=== PATIENT | female | born 1935 | race Caucasian/White ===

== ENCOUNTER 2021-12-13 14:33 | Inpatient (IN) ==
--- NOTE | 2021-12-13 14:51 | Emergency Department Note ---
Impression & Plan 2019 novel coronavirus-infected pneumonia (NCIP), Respiratory failure, Acute sore throat, LLL pneumonia ED Provider Note Provider: Perez Marquis MD DATE OF SERVICE: 12/13/2021 CHIEF COMPLAINT: Sore throat, weakness HISTORY OF PRESENT ILLNESS: Patient is a 86-year-old female reported history of hypertension, chronic dyspnea on exertion, and chronic left hip and low back pain. Presenting here today via ambulance from her apartment with reports for the past week developing some fevers and chills with a bit of a sore throat and cough. Worsening myalgias and weakness today. Minimally productive to no productivity to the cough. Denies nausea vomiting or abdominal pain. Denies chest pain. Reports lipid constipation. Denies any falls. Patient relays that she was around the folks who were sick about a week ago and her symptoms started. She is not vaccinated for flu or COVID. EMS reports the patient was found to be hypoxic in the right 70s for them on room air. Patient with minimal complaints of shortness of breath. Predominately complains of sore throat. REVIEW OF SYSTEMS: A total of 10 review of systems was obtained and negative except as stated above in the HPI. PAST MEDICAL HISTORY: As noted above MEDICATIONS: Reviewed home medications SOCIAL HISTORY: Former smoker, lives by herself in apartment PHYSICAL EXAM: GENERAL: alert and oriented in no acute distress on stretcher fatigued in appearance, very slight/thin in frame Head: normocephalic and atraumatic EYES: No injection, discharge or icterus. NECK: Trachea midline. Supple. ENT: Mucous membranes pink and moist. Pharynx without significant swelling and minimal erythema. LUNGS: Airway patent. No retractions. Breath sounds clear anteriorly without significant wheeze HEART: Regular rate and rhythm. No chest wall tenderness ABDOMEN: Soft and non-tender, without guarding or rebound. SKIN: Acyanotic, warm, dry, without rashes EXTREMITIES: Without swelling, tenderness or deformity NEUROLOGICAL: No focal deficits. No aphasia. No facial droop or slurred speech. Normal strength and tone in the extremities. Sensation to gross touch normal. Ambulatory. EK bpm normal sinus rhythm. No PVC or PAC. No acute ST segment elevation or depression other significant artifact in the inferior leads. QTc 416. CONTINUOUS CARDIAC MONITORING: was ordered and showed a heart rate of 80s-100s bpm in normal sinus rhythm/sinus tachycardia Patient's laboratory studies and imaging reviewed. Differential includes Infection, dehydration, metabolic abnormality, hypo/hyperglycemia, electrolyte disturbance, anemia, hypoxia, cardiac sources, intracerebral event, toxicologic, neurologic, as well as other pathologies. IMPRESSION/MEDICAL DECISION MAKING: Patient significant hypoxic here on room air at rest. Unvaccinated. High suspicion for viral syndrome such as COVID. Test sent and returns positive. Given her hypoxia given a dose of dexamethasone. Basic labs, lactate, EKG, chest x-ray, and blood cultures were completed. Leukocytosis of 14 with an elevated procalcitonin. Question bacterial infection. Mild CRP elevation. No troponin elevation. No signs of renal dysfunction or electrolyte abnormality. Chest x- ray concerning for left lower lobe pneumonia. Given her hypoxia and these fi ndings treated broadly with ceftriaxone and doxycycline. Discussed with the patient she requires admission given her hypoxia. DIAGNOSIS: Hypoxic respiratory failure, left lower lobe pneumonia, COVID-19 pneumonia DISPOSITION: Hospitalist will evaluate Patient was agreeable with this plan. Past Med/Surg History Medical History Anxiety Chronic back pain CKD (chronic kidney disease), stage III HTN (hypertension) Surgical History History of hip replacement History of tonsillectomy Family History Other Heart disease Hypertension Social History Smoking Status: Former smoker packs per day: 0.5; Years Smoked: 10; Smoking End Date: 1985; Hx Alcohol Use: No Hx Substance Use: No Feels Safe at Home: Yes Allergies Allergies Allergy/AdvReac Type Severity Reaction Status Date / Time hydroxyzine [From Atarax] AdvReac HEART RACES Verified 12/13/21 15:45 Home Meds Home Medications Medication Instructions Recorded Confirmed amlodipine 10 mg tablet 10 mg PO DAILY 12/13/21 12/13/21 aspirin 81 mg chewable tablet 81 mg PO DAILY 12/13/21 12/13/21 diazepam 5 mg tablet 5 mg PO BID PRN 12/13/21 12/13/21 diclofenac sodium 1 % topical gel 0 g TOPICAL TID PRN 12/13/21 12/13/21 docusate sodium 100 mg capsule 100 mg PO BID 12/13/21 12/13/21 fluticasone propionate 110 2 puff INHALATION BID 12/13/21 12/13/21 mcg/actuation HFA aerosol inhaler (Flovent HFA) hydrocodone 5 mg-acetaminophen 325 1 tab PO Q8H PRN 12/13/21 12/13/21 mg tablet lisinopril 5 mg tablet 10 mg PO DAILY 12/13/21 12/13/21 sennosides 8.6 mg tablet (senna) 8.6 mg PO BID 12/13/21 12/13/21 Results & Data (ED) Vital Signs Vital Signs - 24 hr 12/13/21 14:44 12/13/21 14:48 12/13/21 14:49 Temperature 36.6 C Temperature Source Oral Pulse Rate 102 H 94 H Pulse Rate from SpO2 Sensor 95 H Pulse Rhythm Regular Pulse Strength Normal Respiratory Rate 20 25 H Respiratory Effort / Characteristics Non-Labored Spontaneous Respiratory Depth Shallow Respiratory Pattern Regular Blood Pressure 188/90 H Blood Pressure Mean 122 Blood Pressure Position Lying Pulse Oximetry 75 L 93 75 L Oxygen Delivery Method Room Air Nasal Cannula Room Air Oxygen Flow Rate 4 0 Sepsis Recent Fever Within 48 Hours No Sepsis New/Unexplained Change in Mental Status No Sepsis Action Taken by Nursing Physician Notified Oxygen Flow Rate - Titration 4 Pulse Oximetry Post Tiitration 94 12/13/21 14:50 12/13/21 15:00 12/13/21 15:05 Temperature Temperature Source Pulse Rate 94 H 94 H 88 Pulse Rate from SpO2 Sensor 94 H 94 H Pulse Rhythm Pulse Strength Respiratory Rate 24 24 20 Respiratory Effort / Characteristics Respiratory Depth Respiratory Pattern Blood Pressure Blood Pressure Mean Blood Pressure Position Pulse Oximetry 94 95 95 Oxygen Delivery Method Nasal Cannula Nasal Cannula Oxygen Flow Rate 4 4 4 Sepsis Recent Fever Within 48 Hours Sepsis New/Unexplained Change in Mental Status Sepsis Action Taken by Nursing Oxygen Flow Rate - Titration Pulse Oximetry Post Tiitration 12/13/21 15:10 12/13/21 15:20 12/13/21 15:30 Temperature Temperature Source Pulse Rate 103 H 84 82 Pulse Rate from SpO2 Sensor 95 H 84 79 Pulse Rhythm Pulse Strength Respiratory Rate 24 22 24 Respiratory Effort / Characteristics Respiratory Depth Respiratory Pattern Blood Pressure Blood Pressure Mean Blood Pressure Position Pulse Oximetry 95 96 96 Oxygen Delivery Method Nasal Cannula Nasal Cannula Nasal Cannula Oxygen Flow Rate 4 4 4 Sepsis Recent Fever Within 48 Hours Sepsis New/Unexplained Change in Mental Status Sepsis Action Taken by Nursing Oxygen Flow Rate - Titration Pulse Oximetry Post Tiitration 12/13/21 15:39 12/13/21 15:40 12/13/21 15:50 Temperature Temperature Source Pulse Rate 82 86 Pulse Rate from SpO2 Sensor 86 87 Pulse Rhythm Pulse Strength Respiratory Rate 24 26 H Respiratory Effort / Characteristics Respiratory Depth Respiratory Pattern Blood Pressure Blood Pressure Mean Blood Pressure Position Pulse Oximetry 96 97 94 Oxygen Delivery Method Nasal Cannula Nasal Cannula Nasal Cannula Oxygen Flow Rate 4 3 3 Sepsis Recent Fever Within 48 Hours Sepsis New/Unexplained Change in Mental Status Sepsis Action Taken by Nursing Oxygen Flow Rate - Titration 3 Pulse Oximetry Post Tiitration 96 12/13/21 16:00 12/13/21 16:10 Temperature Temperature Source Pulse Rate 83 85 Pulse Rate from SpO2 Sensor 83 90 Pulse Rhythm Pulse Strength Respiratory Rate 22 19 Respiratory Effort / Characteristics Respiratory Depth Respiratory Pattern Blood Pressure Blood Pressure Mean Blood Pressure Position Pulse Oximetry 95 93 Oxygen Delivery Method Nasal Cannula Nasal Cannula Oxygen Flow Rate 3 3 Sepsis Recent Fever Within 48 Hours Sepsis New/Unexplained Change in Mental Status Sepsis Action Taken by Nursing Oxygen Flow Rate - Titration Pulse Oximetry Post Tiitration Laboratory Data Result diagrams: 12/13/21 14:55 12/13/21 14:55 Lab Results 12/13/21 12/13/21 12/13/21 Range/Units 14:55 14:55 14:55 WBC 14.06 H (4.8-10.8) K/uL RBC 4.49 (4.2-5.4) M/uL Hgb 14.0 (12.0-16.0) g/dL Hct 43.0 (37-47) % MCV 95.8 (80-100) fL MCH 31.2 (25-34) pg MCHC 32.6 (32-36) g/dL RDW Std Deviation 45.5 (36.4-46.3) fL RDW Coeff of Krista 13.0 (11.5-14.5) % Plt Count 175 (130-400) K/uL MPV 11.3 H (7.4-10.4) fL Immature Gran % (Auto) 0.2 % Neut % (Auto) 89.8 % Lymph % (Auto) 3.9 % Clinch % (Auto) 6.0 % Eos % (Auto) 0.0 % Baso % (Auto) 0.1 % Neut # (Auto) 12.62 H (1.4-6.5) K/uL Lymph # (Auto) 0.55 L (1.2-3.4) K/uL Clinch # (Auto) 0.85 H (0.11-0.59) K/uL Eos # (Auto) 0.00 (0-0.5) K/uL Baso # (Auto) 0.01 (0-0.2) K/uL Immature Gran # (Auto) 0.03 H (0.00-0.02) K/uL PT 9.8 (9.0-12.0) Seconds INR 1.0 (0.9-1.1) Sodium 140 (136-145) mmol/L Potassium 4.2 (3.5-5.1) mmol/L Chloride 101 (98-107) mmol/L Carbon Dioxide 31 (21-32) mmol/L Anion Gap 8 (3-11) BUN 21 (6-23) mg/dl Creatinine 0.89 (0.6-1.2) mg/dl Est Cr Clr Drug Dosing 24.4 ml/min Est GFR ( Amer) 68.0 ml/min Est GFR (Non-Af Amer) 58.7 ml/min BUN/Creatinine Ratio 23.6 H (10-20) Glucose 131 H (70-99(Fasting)) mg/dl Lactate (0.4-2.0) mmol/L Calcium 9.8 (8.5-10.1) mg/dl Magnesium 2.0 (1.7-2.4) mg/dl Total Bilirubin 0.4 (0.2-1.0) mg/dl AST 18 (13-39) U/L ALT 11 (7-52) U/L Alkaline Phosphatase 71 (34-104) U/L Troponin I < 0.03 (0-0.04) ng/ml C-Reactive Protein 1.66 H (0-0.5) mg/dl Total Protein 6.8 (6.0-8.3) gm/dl Albumin 4.0 (3.4-5.0) gm/dl Globulin 2.8 (2.5-4.0) gm/dl Albumin/Globulin Ratio 1.4 (0.9-2) Procalcitonin (0-0.5) ng/ml TSH (0.300-4.500) uIu/ml SARS-CoV-2, RNA, NAAT (NEGATIVE) 12/13/21 12/13/21 12/13/21 Range/Units 14:55 14:55 14:55 WBC (4.8-10.8) K/uL RBC (4.2-5.4) M/uL Hgb (12.0-16.0) g/dL Hct (37-47) % MCV (80-100) fL MCH (25-34) pg MCHC (32-36) g/dL RDW Std Deviation (36.4-46.3) fL RDW Coeff of Krista (11.5-14.5) % Plt Count (130-400) K/uL MPV (7.4-10.4) fL Immature Gran % (Auto) % Neut % (Auto) % Lymph % (Auto) % Clinch % (Auto) % Eos % (Auto) % Baso % (Auto) % Neut # (Auto) (1.4-6.5) K/uL Lymph # (Auto) (1.2-3.4) K/uL Clinch # (Auto) (0.11-0.59) K/uL Eos # (Auto) (0-0.5) K/uL Baso # (Auto) (0-0.2) K/uL Immature Gran # (Auto) (0.00-0.02) K/uL PT (9.0-12.0) Seconds INR (0.9-1.1) Sodium (136-145) mmol/L Potassium (3.5-5.1) mmol/L Chloride (98-107) mmol/L Carbon Dioxide (21-32) mmol/L Anion Gap (3-11) BUN (6-23) mg/dl Creatinine (0.6-1.2) mg/dl Est Cr Clr Drug Dosing ml/min Est GFR ( Amer) ml/min Est GFR (Non-Af Amer) ml/min BUN/Creatinine Ratio (10-20) Glucose (70-99(Fasting)) mg/dl Lactate 1.1 (0.4-2.0) mmol/L Calcium (8.5-10.1) mg/dl Magnesium (1.7-2.4) mg/dl Total Bilirubin (0.2-1.0) mg/dl AST (13-39) U/L ALT (7-52) U/L Alkaline Phosphatase (34-104) U/L Troponin I (0-0.04) ng/ml C-Reactive Protein (0-0.5) mg/dl Total Protein (6.0-8.3) gm/dl Albumin (3.4-5.0) gm/dl Globulin (2.5-4.0) gm/dl Albumin/Globulin Ratio (0.9-2) Procalcitonin 1.72 H (0-0.5) ng/ml TSH 1.255 (0.300-4.500) uIu/ml SARS-CoV-2, RNA, NAAT (NEGATIVE) 12/13/21 Range/Units 15:40 WBC (4.8-10.8) K/uL RBC (4.2-5.4) M/uL Hgb (12.0-16.0) g/dL Hct (37-47) % MCV (80-100) fL MCH (25-34) pg MCHC (32-36) g/dL RDW Std Deviation (36.4-46.3) fL RDW Coeff of Krista (11.5-14.5) % Plt Count (130-400) K/uL MPV (7.4-10.4) fL Immature Gran % (Auto) % Neut % (Auto) % Lymph % (Auto) % Clinch % (Auto) % Eos % (Auto) % Baso % (Auto) % Neut # (Auto) (1.4-6.5) K/uL Lymph # (Auto) (1.2-3.4) K/uL Clinch # (Auto) (0.11-0.59) K/uL Eos # (Auto) (0-0.5) K/uL Baso # (Auto) (0-0.2) K/uL Immature Gran # (Auto) (0.00-0.02) K/uL PT (9.0-12.0) Seconds INR (0.9-1.1) Sodium (136-145) mmol/L Potassium (3.5-5.1) mmol/L Chloride (98-107) mmol/L Carbon Dioxide (21-32) mmol/L Anion Gap (3-11) BUN (6-23) mg/dl Creatinine (0.6-1.2) mg/dl Est Cr Clr Drug Dosing ml/min Est GFR ( Amer) ml/min Est GFR (Non-Af Amer) ml/min BUN/Creatinine Ratio (10-20) Glucose (70-99(Fasting)) mg/dl Lactate (0.4-2.0) mmol/L Calcium (8.5-10.1) mg/dl Magnesium (1.7-2.4) mg/dl Total Bilirubin (0.2-1.0) mg/dl AST (13-39) U/L ALT (7-52) U/L Alkaline Phosphatase (34-104) U/L Troponin I (0-0.04) ng/ml C-Reactive Protein (0-0.5) mg/dl Total Protein (6.0-8.3) gm/dl Albumin (3.4-5.0) gm/dl Globulin (2.5-4.0) gm/dl Albumin/Globulin Ratio (0.9-2) Procalcitonin (0-0.5) ng/ml TSH (0.300-4.500) uIu/ml SARS-CoV-2, RNA, NAAT POSITIVE A* (NEGATIVE) Administered Medications Discontinued Medications Acetaminophen (Acetaminophen 325 Mg Tab) 650 mg PO NOW STA Stop: 12/13/21 16:09 Last Admin: 12/13/21 16:29 Dose: 650 mg Documented by: [id number] Dexamethasone Sodium Phosphate (DexamethasonePf 10 Mg/Ml Vial) 6 mg IV NOW ONE Stop: 12/13/21 15:54 Last Admin: 12/13/21 16:07 Dose: 6 mg Documented by: [id number] Doxycycline Hyclate (Doxycycline Hyclate 100 Mg Cap) 100 mg PO NOW STA Stop: 12/13/21 15:52 Last Admin: 12/13/21 16:06 Dose: 100 mg Documented by: [id number] Sodium Chloride (Nss 1000ml) 500 mls @ 999 mls/hr IV .Q31M ONE Stop: 12/13/21 16:21 Last Infusion: 12/13/21 16:39 Dose: 0 mls/hr Documented by: [id number] Admin: 12/13/21 16:08 Dose: 999 mls/hr Documented by: [id number] Ceftriaxone Sodium (Rocephin) 1,000 mg in 50 mls @ 100 mls/hr IV NOW STA Stop: 12/13/21 16:20 Last Infusion: 12/13/21 16:53 Dose: 0 mls/hr Documented by: [id number] Admin: 12/13/21 16:10 Dose: 100 mls/hr Documented by: [id number] Menthol (Cough Drop (Sugar Free) Starla 24 Starla/1 Box) 1 starla BUCCAL NOW STA Stop: 12/13/21 16:09 Last Admin: 12/13/21 16:28 Dose: 1 starla Documented by: [id number] Imaging Data Radiologist's Impression: Chest X-Ray 12/13/21 14:47 XR chest 1V portable CLINICAL HISTORY: weakness TECHNIQUE: Single frontal radiograph of the chest was obtained. Comparison: None available at the time of this dictation. FINDINGS: No lines and tubes are seen. The cardiomediastinal silhouette is normal. Focal airspace opacities in the left lower lung. No evidence of pleural effusion or pneumothorax. Scoliosis is noted. IMPRESSION: Focal airspace opacity in the left lower lung may represent atelectasis, pneumonia, and/or aspiration. ACT 112: Negative or not required by law. Electronically signed by: Benedicto Reynolds M.D. 12/13/2021 3:15 PM Discharge Plan Visit Data Chief Complaint: Sore Throat Stated Complaint: ILLNESS, SORE THROAT ED Provider: Perez Marquis Discharge Problem: 2019 novel coronavirus-infected pneumonia (NCIP), Respiratory failure, Acute sore throat, LLL pneumonia Patient Disposition: Being Evaluated by Hospitalist
[2021-12-13 15:07] LABS: Basophils # (auto) 0.01 K/uL (0-0.2); Basophils % (auto) 0.1 %; Immature Granulocytes # (auto) 0.03 K/uL (0.00-0.02); Immature Granulocytes % (auto) 0.2 %; Lymphocytes # (auto) 0.55 K/uL (1.2-3.4); Lymphocytes % (auto) 3.9 %; Mean Corpuscular Hemoglobin 31.2 pg (25-34); Mean Corpuscular Hgb Conc 32.6 g/dL (32-36); Mean Corpuscular Volume 95.8 fL (80-100); Mean Platelet Volume 11.3 fL (7.4-10.4); Monocytes # (auto) 0.85 K/uL (0.11-0.59); Neutrophils # (auto) 12.62 K/uL (1.4-6.5); Neutrophils % (auto) 89.8 %; Platelet Count 175 K/uL (130-400); RDW Standard Deviation 45.5 fL (36.4-46.3); Red Blood Count 4.49 M/uL (4.2-5.4); White Blood Count 14.06 K/uL (4.8-10.8)
--- NOTE | 2021-12-13 15:16 | XRay Report ---
XR chest 1V portable CLINICAL HISTORY: weakness TECHNIQUE: Single frontal radiograph of the chest was obtained. Comparison: None available at the time of this dictation. FINDINGS: No lines and tubes are seen. The cardiomediastinal silhouette is normal. Focal airspace opacities in the left lower lung. No evidence of pleural effusion or pneumothorax. Scoliosis is noted. IMPRESSION: Focal airspace opacity in the left lower lung may represent atelectasis, pneumonia, and/or aspiration . ACT 112: Negative or not required by law. Electronically signed by: Benedicto Reynolds M.D. 12/13/2021 3:15 PM
[2021-12-13 15:18] LABS: Prothrombin Time 9.8 Seconds (9.0-12.0)
[2021-12-13 15:34] LABS: Troponin I < 0.03 ng/ml (0-0.04)
[2021-12-13 15:36] LABS: Alanine Aminotransferase 11 U/L (7-52); Albumin Globulin Ratio 1.4 (0.9-2); Alkaline Phosphatase 71 U/L (34-104); Anion Gap 8 (3-11); Aspartate Aminotransferase 18 U/L (13-39); BUN Creatinine Ratio 23.6 (10-20); Bilirubin,Total 0.4 mg/dl (0.2-1.0); Blood Urea Nitrogen 21 mg/dl (6-23); C Reactive Protein 1.66 mg/dl (0-0.5); Calcium 9.8 mg/dl (8.5-10.1); Carbon Dioxide 31 mmol/L (21-32); Chloride 101 mmol/L (98-107); Creatinine Clr Calc Pharmacy 24.4 ml/min; Est GFR (Non-African American) 58.7 ml/min; Globulin 2.8 gm/dl (2.5-4.0); Glucose 131 mg/dl (70-99(Fasting)); Potassium 4.2 mmol/L (3.5-5.1); Sodium 140 mmol/L (136-145); Total Protein 6.8 gm/dl (6.0-8.3)
[2021-12-13] MEDS ORDERED: SODIUM CHLORIDE 0.9% 1000ML 500 ML IV ONE (15:51)
[2021-12-13] MEDS ORDERED: DOXYCYCLINE HYCLATE 100 MG CAP PO STA (15:51)
[2021-12-13] MEDS ORDERED: cefTRIAXone SODIUM 1,000 MG/50 ML BAG IV STA (15:51)
[2021-12-13] MEDS ORDERED: dexAMETHasone**PF** 10 MG/ML VIAL IV ONE (15:53)
[2021-12-13] MEDS ORDERED: ACETAMINOPHEN 325 MG TAB PO STA (16:08)
[2021-12-13] MEDS ORDERED: COUGH DROP (SUGAR FREE) LOZ 24 LOZ/1 BOX BUCCAL STA (16:08)
--- NOTE | 2021-12-13 16:09 | History & Physical Report ---
Date of Service December 13, 2021 Assessment & Plan (1) Acute respiratory failure with hypoxia: Plan: This is an 86yo F with PMH of HTN, CKD III, DDD and other medical problems listed below who presents via EMS for sore throat x 1 week and was found to have acute hypoxia in setting of covid and KATE pna. Found by EMS to be hypoxic in the 70s, now 94% on 3L NC Continue supplemental O2 (2) 2019 novel coronavirus-infected pneumonia (NCIP): Plan: Covid PCR positive today, 12/13/20, symptomatic for 7 days, unvaccinated Continue dexamethasone, patient considering remdesivir Covid isolation precautions, incentive spirometry, flutter valve (3) LLL pneumonia: Plan: Afebrile, leukocytosis of 14, procal 1.72, CRP 1.66 CXR with focal airspace opacity in the left lower lung may represent atelectasis, pneumonia, and/or aspiration Continue rocephin, doxycycline, nebs (4) HTN (hypertension): Plan: BP elevated, will give missed dose of lisinopril Continue amlodipine, lisinopril (5) CKD (chronic kidney disease), stage III: Plan: At baseline. Monitor with daily BMP (6) Anxiety: Plan: Valium PRN, usually uses 1x/week (7) Chronic back pain: Plan: Heat compress, home Hartwell as needed, uses 1-2x/week at home DVT Ppx: SQ Lovenox (30mg for weight of 34kg) Code status: FULL PCP: Clarissa Dispo: Admitted to PCU Patient seen in collaboration with Dr. Holguin. Please see addendum. History of Present Illness Chief Complaint: sore throat Primary Care Provider: Brandie Omalley MD This is an 86yo F with PMH of HTN, CKD III, DDD and other medical problems listed below who presents via EMS for sore throat x 1 week. Patient lives alone and has been feeling sick for past week with chills, sore throat, dry cough and myalgias. Also with intermittent SOB over the past few days. [place] more dizzy today and generally weak. Son came over and called EMS. Patient was found to be hypoxic in the 70s. Does not normally require oxygen. Remote smoking history. No fever, headache, chest pain, palpitations, wheezing, N/V, abdominal pain or dysuria. Endorses some constipation over past few days. Uses Hartwell a few times per week for back and hip pain. Has also been using colace and senna for constipation. Was not vaccinated for flu or covid. Allergies Allergy/AdvReac Type Severity Reaction Status Date / Time hydroxyzine [From Atarax] AdvReac HEART RACES Verified 12/13/21 15:45 Home Medications Medication Instructions Recorded Confirmed Type amlodipine 10 mg tablet 10 mg PO DAILY 12/13/21 12/13/21 History aspirin 81 mg chewable tablet 81 mg PO DAILY 12/13/21 12/13/21 History diazepam 5 mg tablet 5 mg PO BID PRN 12/13/21 12/13/21 History diclofenac sodium 1 % topical gel 0 g TOPICAL TID PRN 12/13/21 12/13/21 History docusate sodium 100 mg capsule 100 mg PO BID 12/13/21 12/13/21 History fluticasone propionate 110 2 puff INHALATION BID 12/13/21 12/13/21 History mcg/actuation HFA aerosol inhaler (Flovent HFA) hydrocodone 5 mg-acetaminophen 325 1 tab PO Q8H PRN 12/13/21 12/13/21 History mg tablet lisinopril 5 mg tablet 10 mg PO DAILY 12/13/21 12/13/21 History sennosides 8.6 mg tablet (senna) 8.6 mg PO BID 12/13/21 12/13/21 History Past Med/Surg History Medical History Anxiety Chronic back pain CKD (chronic kidney disease), stage III HTN (hypertension) Surgical History History of hip replacement History of tonsillectomy Family History Other Heart disease Hypertension Social History Smoking Status: Former smoker packs per day: 0.5; Years Smoked: 10; Smoking End Date: 1985; Hx Alcohol Use: No Hx Substance Use: No Preferred Language: Bengali Communication Ability: Effective Supervisor Fishing Required: No Beliefs That Will Affect Care: None Current Living Situation: Alone Other Information That Helps Us Care for You: No Feels Safe at Home: Yes Safety Concerns: Feels Safe At This Time Assistive Devices: None Review of Systems Review of Systems: At least ten systems reviewed and negative except as noted in the HPI. Physical Exam Physical Exam: Please see Dr. Holguin's addendum for physical exam details. Results & Data Results & Data ([facility]) Vital Signs (Past 12 Hours) Vital Signs Temp Pulse Resp BP Pulse Ox 12/13/21 15:50 86 26 H 94 12/13/21 15:40 82 24 97 12/13/21 15:39 96 12/13/21 15:30 82 24 96 12/13/21 15:20 84 22 96 12/13/21 15:10 103 H 24 95 12/13/21 15:05 88 20 95 12/13/21 15:00 94 H 24 95 12/13/21 14:50 94 H 24 94 12/13/21 14:49 75 L 12/13/21 14:48 94 H 25 H 93 12/13/21 14:44 36.6 C 102 H 20 188/90 H 75 L Laboratory Results Short CBC 12/13/21 Range/Units 14:55 WBC 14.06 H (4.8-10.8) K/uL Hgb 14.0 (12.0-16.0) g/dL Hct 43.0 (37-47) % Plt Count 175 (130-400) K/uL BMP 12/13/21 14:55 Sodium 140 Potassium 4.2 Chloride 101 Carbon Dioxide 31 BUN 21 Creatinine 0.89 Glucose 131 H Calcium 9.8 Cardiac Enzymes 12/13/21 Range/Units 14:55 Troponin I < 0.03 (0-0.04) ng/ml Liver Function 12/13/21 Range/Units 14:55 Total Bilirubin 0.4 (0.2-1.0) mg/dl AST 18 (13-39) U/L ALT 11 (7-52) U/L Alkaline Phosphatase 71 (34-104) U/L Albumin 4.0 (3.4-5.0) gm/dl Diagnostic Findings Chest X-Ray 12/13/21 14:47 XR chest 1V portable CLINICAL HISTORY: weakness TECHNIQUE: Single frontal radiograph of the chest was obtained. Comparison: None available at the time of this dictation. FINDINGS: No lines and tubes are seen. The cardiomediastinal silhouette is normal. Focal airspace opacities in the left lower lung. No evidence of pleural effusion or pneumothorax. Scoliosis is noted. IMPRESSION: Focal airspace opacity in the left lower lung may represent atelectasis, pneumonia, and/or aspiration. ACT 112: Negative or not required by law. Electronically signed by: Benedicto Reynolds M.D. 12/13/2021 3:15 PM Supervising Physician Co-Signing Physician Notes Attending addendum: The patient was seen and examined in the emergency room She has been complaining of shortness of breath and cough with weakness for the last 3 days She is not vaccinated for COVID and does not know that she is exposed to anybody with COVID Feels feverish with chills at times but no documented fever On examination She is very lean and thin lady with mild to moderate shortness of breath at rest Her blood pressure noted to be high at 172/88 Chest-decreased breath sounds bilaterally with crackles in the left base Heart-S1-S2, regular Abdomen-benign Extremities-negative for any edema 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
[2021-12-13] MEDS ORDERED: HYDROCODONE/ACETAMOPHEN 5/325MG TAB PO PRN (18:15)
[2021-12-13] MEDS ORDERED: ACETAMINOPHEN 325 MG TAB PO PRN (18:15)
[2021-12-13] MEDS ORDERED: ONDANSETRON INJ 2 MG/ML 2 ML VIAL IV PRN (18:15)
[2021-12-13] MEDS ORDERED: diazePAM 5 MG TABLET PO PRN (18:15)
[2021-12-13] MEDS ORDERED: lisinopril 10 MG TAB PO SCH (18:15)
[2021-12-13] MEDS ORDERED: POLYETHYLENE (MIRALAX) 17 GM PACK PO PRN (18:15)
[2021-12-13] MEDS ORDERED: REMDESIVIR 200 MG in SODIUM CHLORIDE 0.9% 210 ML IV ONE (20:00)
--- NOTE | 2021-12-13 20:30 | Electrocardiogram Report ---
Test Reason : Blood Pressure : / mmHG Vent. Rate : 087 BPM Atrial Rate : 087 BPM P-R Int : 152 ms QRS Dur : 072 ms QT Int : 346 ms P-R-T Axes : 030 092 086 degrees QTc Int : 416 ms Poor data quality, interpretation may be adversely affected Normal sinus rhythm No previous ECGs available Confirmed by Ari Choi ([id number]) on 12/13/2021 8:30:24 PM Referred By: REFERRED SELF Confirmed By:Kishor Choi
[2021-12-13] MEDS: ENOXAPARIN INJ 30 MG/0.3 ML SYR SQ SCH (20:37)
[2021-12-13] MEDS: DOXYCYCLINE HYCLATE 100 MG CAP PO SCH (20:37)
[2021-12-13] MEDS: SENNA 8.6 MG TAB PO SCH (20:38)
[2021-12-13] MEDS: DOCUSATE SODIUM 100 MG CAP PO SCH (20:38)
[2021-12-14 09:33] LABS: Basophils # (auto) 0.01 K/uL (0-0.2); Basophils % (auto) 0.1 %; Hematocrit (blood only) 40.5 % (37-47); Hemoglobin 13.1 g/dL (12.0-16.0); Immature Granulocytes # (auto) 0.03 K/uL (0.00-0.02); Immature Granulocytes % (auto) 0.3 %; Lymphocytes % (auto) 6.1 %; Mean Corpuscular Hemoglobin 31.3 pg (25-34); Mean Corpuscular Hgb Conc 32.3 g/dL (32-36); Mean Corpuscular Volume 96.9 fL (80-100); Mean Platelet Volume 10.4 fL (7.4-10.4); Monocytes # (auto) 0.79 K/uL (0.11-0.59); Monocytes % (auto) 6.9 %; Neutrophils # (auto) 9.87 K/uL (1.4-6.5); Neutrophils % (auto) 86.6 %; Platelet Count 150 K/uL (130-400); RDW Coefficient of Variation 13.4 % (11.5-14.5); RDW Standard Deviation 47.5 fL (36.4-46.3); Red Blood Count 4.18 M/uL (4.2-5.4)
[2021-12-14 09:54] LABS: BUN Creatinine Ratio 39.5 (10-20); C Reactive Protein 3.62 mg/dl (0-0.5); Calcium 9.5 mg/dl (8.5-10.1); Creatinine Clr Calc Pharmacy 23.5 ml/min; Est GFR (African American) 76.2 ml/min; Est GFR (Non-African American) 65.8 ml/min; Potassium 4.2 mmol/L (3.5-5.1)
[2021-12-14] MEDS: DOCUSATE SODIUM 100 MG CAP PO SCH ×2 (10:32→20:10)
[2021-12-14] MEDS: SENNA 8.6 MG TAB PO SCH ×2 (10:32→20:10)
[2021-12-14] MEDS: ASPIRIN 81 MG ECTAB PO SCH (10:32)
[2021-12-14] MEDS: DOXYCYCLINE HYCLATE 100 MG CAP PO SCH ×2 (10:32→20:06)
[2021-12-14] MEDS: FLUTICASONE FUROATE 200MCG 14 PUFFS/INHALER INH SCH (10:33)
[2021-12-14] MEDS: cefTRIAXone SODIUM 1,000 MG in DEXTROSE 5% 50 ML IV SCH (10:33)
[2021-12-14] MEDS: amLODIPine BESYLATE 5 MG TAB PO SCH (10:33)
[2021-12-14] MEDS: dexAMETHasone 6 MG in SYRINGE 0 ML IV SCH (10:34)
[2021-12-14] MEDS: lisinopril 20 MG TAB PO SCH (10:53)
[2021-12-14 12:11] LABS: Appearance Urine Cloudy (Clear); Bilirubin Urine Negative (Negative); Blood Urine Negative (Negative); Color Urine Dark Yellow; Epithelial Cell Urine Auto >30 /lpf (0-5); Glucose Urine UA Negative (Negative); Ketones Urine Negative (Negative); Leukocyte Esterase Urine Negative (Negative); Nitrite Urine Negative (Negative); Protein Urine 2+ (Negative); RBC Urine Automated 0-4 /hpf (0-4); Specific Gravity Urine 1.026 (1.000-1.030); Urobilinogen Urine Negative (Negative)
[2021-12-14 12:29] LABS: Bacteria Urine Automated 1+ (Negative)
--- NOTE | 2021-12-14 12:58 | Hospitalist Progress Note ---
Date of Service December 14, 2021 Assessment & Plan (1) Acute respiratory failure with hypoxia: Plan: This is an 86yo F with PMH of HTN, CKD III, DDD and other medical problems listed below who presents via EMS for sore throat x 1 week and was found to have acute hypoxia in setting of covid and KATE pna. Found by EMS to be hypoxic in the 70s, now 94% on 3L [place] Secondary to COVID-19 virus infection and is complicated by COPD and bacterial pneumonia Continue supplemental O2 COPD by chest x-ray criteria She is a past smoker Complains to have shortness of breath with exertion Does not take any oxygen at home but this time most likely she will need it (2) 2019 novel coronavirus-infected pneumonia (NCIP): Plan: Covid PCR positive today, 12/13/20, symptomatic for 7 days, unvaccinated Continue dexamethasone, patient considering remdesivir Covid isolation precautions, incentive spirometry, flutter valve Remdesivir was started on admission and discontinued She has been feeling much better and is still requiring 2 L of oxygen to maintain saturation (3) LLL pneumonia: Plan: Afebrile, leukocytosis of 14, procal 1.72, CRP 1.66 CXR with focal airspace opacity in the left lower lung may represent atelectasis, pneumonia, and/or aspiration Continue rocephin, doxycycline, nebs Clinically better and will continue (4) HTN (hypertension): Plan: BP elevated, will give missed dose of lisinopril Continue amlodipine, lisinopril Blood pressure remains on the upper side (5) CKD (chronic kidney disease), stage III: Plan: At baseline. Monitor with daily BMP (6) Anxiety: Plan: Valium PRN, usually uses 1x/week (7) Chronic back pain: Plan: Heat compress, home [place] as needed, uses 1-2x/week at home DVT Ppx: SQ Lovenox (30mg for weight of 34kg) Code status: FULL PCP: Clarissa Dispo: Admitted to PCU She wants to go home We will get PT and OT evaluation Admission and Anticipated Discharge Date Admission Date: December 13, 2021 Subjective 12/14/2021 The patient was seen and examined in telemetry unit and in the Covid room She has been feeling much better and wants to go home Still has shortness of breath with exertion and generalized weakness We will get PT and OT evaluation Review of Systems Review of Systems: At least ten systems reviewed and negative except as noted in the HPI. Respiratory: Minimal shortness of breath at rest Neurologic: Generalized weakness Physical Exam Physical Exam: Lying in bed with minimal discomfort due to shortness of breath Constitutional: + ill appearing and + thin Eyes: PERRL, conjunctivae normal, anicteric sclerae ENMT: external ear and nose normal, oropharynx normal Neck: trachea midline, no thyromegaly Respiratory: + respiratory distress (Minimal distress at rest) Auscultation: + diminished lung sounds and + crackles (Minimal crackles at the bases) Cardiovascular: Rate/Rhythm: regular rate and regular rhythm Heart Sounds: normal S1, normal S2 and + murmur (2/6 ESM over precordium) Extremities: no edema Gastrointestinal (Abdomen): Inspection/Auscultation: normal bowel sounds; abdomen not distended Percussion/Palpation: abdomen soft; abdomen nontender Musculoskeletal: No acute arthritis in any joint Neurologic: Alert, awake and oriented x3. She is very weak and lethargic Results & Data Results & Data ([facility]) Vital Signs (Past 12 Hours) Vital Signs Temp Pulse Pulse Resp BP Pulse Ox 12/14/21 11:29 36.6 C 88 20 179/93 H 95 12/14/21 10:45 95 12/14/21 10:00 86 L 12/14/21 08:00 53 L 99 12/14/21 07:36 36.6 C 62 20 150/100 H 94 12/14/21 02:47 36.4 C 53 L 19 134/58 L 98 Laboratory Results Short CBC 12/13/21 12/14/21 Range/Units 14:55 09:17 WBC 14.06 H 11.40 H (4.8-10.8) K/uL Hgb 14.0 13.1 (12.0-16.0) g/dL Hct 43.0 40.5 (37-47) % Plt Count 175 150 (130-400) K/uL BMP 12/13/21 12/14/21 14:55 09:17 Sodium 140 141 Potassium 4.2 4.2 Chloride 101 105 Carbon Dioxide 31 32 BUN 21 32 H Creatinine 0.89 0.81 Glucose 131 H 107 H Calcium 9.8 9.5 Cardiac Enzymes 12/13/21 Range/Units 14:55 Troponin I < 0.03 (0-0.04) ng/ml Liver Function 12/13/21 Range/Units 14:55 Total Bilirubin 0.4 (0.2-1.0) mg/dl AST 18 (13-39) U/L ALT 11 (7-52) U/L Alkaline Phosphatase 71 (34-104) U/L Albumin 4.0 (3.4-5.0) gm/dl Urine 12/14/21 Range/Units 11:30 Urine Color Dark Yellow Urine Appearance Cloudy A (Clear) Urine pH 5.0 (4.5-7.5) Ur Specific [place] 1.026 (1.000-1.030) Urine Protein 2+ H (Negative) Urine Glucose (UA) Negative (Negative) Medications Administered Current Inpatient Medications Acetaminophen (Acetaminophen 325 Mg Tab) 650 mg PO Q4H PRN PRN Reason: Pain or Fever Stop: 01/12/22 18:14 Hydrocodone Bitart/Acetaminophen (Hydrocodone/Acetamophen 5/325mg Tab) 1 tab PO Q8H PRN PRN Reason: Pain Stop: 12/27/21 18:14 Amlodipine Besylate (Amlodipine Besylate 5 Mg Tab) 10 mg PO DAILY [facility] Stop: 01/13/22 08:59 Last Admin: 12/14/21 10:33 Dose: 10 mg Documented by: Aspirin (Aspirin 81 Mg Ectab) 81 mg PO DAILY MO Stop: 01/13/22 08:59 Last Admin: 12/14/21 10:32 Dose: 81 mg Documented by: Diazepam (Diazepam 5 Mg Tablet) 5 mg PO BID PRN PRN Reason: Anxiety Stop: 01/12/22 18:14 Docusate Sodium (Docusate Sodium 100 Mg Cap) 100 mg PO BID MO Stop: 01/12/22 20:59 Last Admin: 12/14/21 10:32 Dose: 100 mg Documented by: Doxycycline Hyclate (Doxycycline Hyclate 100 Mg Cap) 100 mg PO BID MO Stop: 12/20/21 20:59 Last Admin: 12/14/21 10:32 Dose: 100 mg Documented by: Enoxaparin Sodium (Enoxaparin Inj 30 Mg/0.3 Ml Syr) 30 mg SQ Q24H MO Stop: 01/12/22 18:14 Last Admin: 12/13/21 20:37 Dose: 30 mg Documented by: Fluticasone Furoate (Fluticasone Furoate 200mcg 14 Puffs/Inhaler) 1 puffs INH DAILY [facility] Stop: 01/13/22 08:59 Last Admin: 12/14/21 10:33 Dose: 1 puffs Documented by: Remdesivir 100 mg/ Sodium (Chloride) 250 mls @ 250 mls/hr IV Q24H [facility] Stop: 12/17/21 20:59 Dexamethasone 6 mg/ Syringe 1.5 mls @ 1 mls/min IV Q24H [facility] Stop: 01/13/22 08:59 Last Admin: 12/14/21 10:34 Dose: 1 mls/min Documented by: Ceftriaxone Sodium 1,000 mg/ (Dextrose) 50 mls @ 100 mls/hr IV Q24H [facility]; Protocol Stop: 12/19/21 09:29 Last Infusion: 12/14/21 11:51 Dose: Infused Documented by: Lisinopril (Lisinopril 20 Mg Tab) 20 mg PO DAILY [facility] Stop: 01/13/22 08:59 Last Admin: 12/14/21 10:53 Dose: 20 mg Documented by: Ondansetron HCl (Ondansetron Inj 2 Mg/Ml 2 Ml Vial) 4 mg IV Q6H PRN PRN Reason: Nausea Stop: 01/12/22 18:14 Polyethylene Glycol (Polyethylene (Miralax) 17 Gm Pack) 17 gm PO DAILY PRN PRN Reason: Constipation Stop: 01/12/22 18:14 Sennosides (Senna 8.6 Mg Tab) 8.6 mg PO BID [facility] Stop: 01/12/22 20:59 Last Admin: 12/14/21 10:32 Dose: 8.6 mg Documented by: (1) LLL pneumonia Pneumonia type: due to unspecified organism Qualified Code(s): J18.9 - Pneumonia, unspecified organism
[2021-12-14] MEDS: REMDESIVIR 100 MG in SODIUM CHLORIDE 0.9% 230 ML IV SCH (20:04)
[2021-12-14] MEDS: ENOXAPARIN INJ 30 MG/0.3 ML SYR SQ SCH (20:06)
[2021-12-15 06:23] LABS: Hematocrit (blood only) 38.8 % (37-47); Hemoglobin 12.5 g/dL (12.0-16.0); Immature Granulocytes # (auto) 0.02 K/uL (0.00-0.02); Immature Granulocytes % (auto) 0.2 %; Lymphocytes # (auto) 0.81 K/uL (1.2-3.4); Lymphocytes % (auto) 8.3 %; Mean Corpuscular Hemoglobin 31.1 pg (25-34); Mean Corpuscular Hgb Conc 32.2 g/dL (32-36); Mean Corpuscular Volume 96.5 fL (80-100); Mean Platelet Volume 11.1 fL (7.4-10.4); Monocytes # (auto) 0.65 K/uL (0.11-0.59); Monocytes % (auto) 6.7 %; Neutrophils # (auto) 8.28 K/uL (1.4-6.5); Neutrophils % (auto) 84.8 %; Platelet Count 172 K/uL (130-400); RDW Coefficient of Variation 13.6 % (11.5-14.5); RDW Standard Deviation 48.5 fL (36.4-46.3); Red Blood Count 4.02 M/uL (4.2-5.4); White Blood Count 9.76 K/uL (4.8-10.8)
[2021-12-15 06:58] LABS: BUN Creatinine Ratio 61.2 (10-20); Calcium 9.2 mg/dl (8.5-10.1); Creatinine Clr Calc Pharmacy 29.7 ml/min; Est GFR (African American) 92.2 ml/min; Est GFR (Non-African American) 79.6 ml/min; Magnesium 1.9 mg/dl (1.7-2.4); Phosphorus 3.4 mg/dl (2.5-4.9); Potassium 4.1 mmol/L (3.5-5.1)
[2021-12-15 06:59] LABS: Albumin Globulin Ratio 1.4 (0.9-2); Bilirubin,Total 0.2 mg/dl (0.2-1.0); Globulin 2.2 gm/dl (2.5-4.0); Total Protein 5.2 gm/dl (6.0-8.3)
[2021-12-15] MEDS: dexAMETHasone 6 MG in SYRINGE 0 ML IV SCH (08:55)
[2021-12-15] MEDS: cefTRIAXone SODIUM 1,000 MG in DEXTROSE 5% 50 ML IV SCH (08:57)
[2021-12-15] MEDS: SENNA 8.6 MG TAB PO SCH ×2 (08:58→21:01)
[2021-12-15] MEDS: amLODIPine BESYLATE 5 MG TAB PO SCH (08:58)
[2021-12-15] MEDS: lisinopril 20 MG TAB PO SCH (08:59)
[2021-12-15] MEDS: ASPIRIN 81 MG ECTAB PO SCH (08:59)
[2021-12-15] MEDS: DOXYCYCLINE HYCLATE 100 MG CAP PO SCH ×2 (08:59→21:01)
[2021-12-15] MEDS: FLUTICASONE FUROATE 200MCG 14 PUFFS/INHALER INH SCH (09:00)
[2021-12-15] MEDS: DOCUSATE SODIUM 100 MG CAP PO SCH ×3 (09:03→21:01)
--- NOTE | 2021-12-15 15:19 | Hospitalist Progress Note ---
Date of Service December 15, 2021 Assessment & Plan (1) Acute respiratory failure with hypoxia: Plan: This is an 86yo F with PMH of HTN, CKD III, DDD and other medical problems listed below who presents via EMS for sore throat x 1 week and was found to have acute hypoxia in setting of covid and KATE pna. Found by EMS to be hypoxic in the 70s, now 94% on 3L [place] Secondary to COVID-19 virus infection and is complicated by COPD and bacterial pneumonia Continue supplemental O2 Her CRP was not greatly elevated which was 3.62 She has been requiring 2 L of oxygen to maintain saturation She wanted to go home today and has had physical therapy She had a 2 step O2 saturation test and she will be requiring 2 L at rest and with ambulation on discharge Significant tachycardia Noted to be tachycardic and gets worse with activity She feels palpitation but denies any chest pain Blood pressure remains on the upper side and 154/78 We will add very small dose of beta-nadiya if that controls the heart rate with ambulation and for blood pressure as well COPD by chest x-ray criteria-she does not have a history of COPD in the chart She is a past smoker Complains to have shortness of breath with exertion Does not take any oxygen at home but this time most likely she will need it Oxygen requirements as above (2) 2019 novel coronavirus-infected pneumonia (NCIP): Plan: Covid PCR positive today, 12/13/20, symptomatic for 7 days, unvaccinated Continue dexamethasone, patient considering remdesivir Covid isolation precautions, incentive spirometry, flutter valve Remdesivir was started on admission and continued She has been feeling much better and is still requiring 2 L of oxygen to maintain saturation Has been feeling a lot better and her LFTs remain unremarkable (3) LLL pneumonia: Plan: Afebrile, leukocytosis of 14, procal 1.72, CRP 1.66 CXR with focal airspace opacity in the left lower lung may represent atelec tasis, pneumonia, and/or aspiration Continue rocephin, doxycycline, nebs Clinically better and will continue No fever and no chills and the white count has been improving Will probably finish the course of antibiotic (4) HTN (hypertension): Plan: BP elevated, will give missed dose of lisinopril Continue amlodipine, lisinopril Blood pressure remains on the upper side A small dose of beta-nadiya will be added (5) CKD (chronic kidney disease), stage III: Plan: At baseline. Monitor with daily BMP Remains stable and her GFR is at borderline for full dose of remdesivir (6) Anxiety: Plan: Valium PRN, usually uses 1x/week (7) Chronic back pain: Plan: Heat compress, home [place] as needed, uses 1-2x/week at home DVT Ppx: SQ Lovenox (30mg for weight of 34kg) Code status: FULL PCP: Clarissa Dispo: Admitted to PCU She wants to go home We will get PT and OT evaluation Likely discharge when heart rate is reasonably controlled with ambulation Admission and Anticipated Discharge Date Admission Date: December 13, 2021 Subjective 12/14/2021 The patient was seen and examined in telemetry unit and in the Covid room She has been feeling much better and wants to go home Still has shortness of breath with exertion and generalized weakness We will get PT and OT evaluation 12/15/2021 The patient was seen and examined in telemetry unit and in the Covid room She has been minimally shortness of breath and still wants to go home Denies any chest pain and/or palpitation at rest Noted to be very tachycardic with ambulation Review of Systems Review of Systems: At least ten systems reviewed and negative except as noted in the HPI. Respiratory: Minimal shortness of breath at rest Neurologic: Generalized weakness Physical Exam Physical Exam: Sitting at the edge of the bed with anxiety and minimal shortness of breath Constitutional: + ill appearing and + thin Eyes: PERRL, conjunctivae normal, anicteric sclerae ENMT: external ear and nose normal, oropharynx normal Neck: trachea midline, no thyromegaly Respiratory: + respiratory distress (Minimal distress at rest) Auscultation: + diminished lung sounds and + crackles (Minimal crackles at the bases) Cardiovascular: Rate/Rhythm: regular rate and regular rhythm Heart Sounds: normal S1, normal S2 and + murmur (2/6 ESM over precordium) Extremities: no edema Gastrointestinal (Abdomen): Inspection/Auscultation: normal bowel sounds; abdomen not distended Percussion/Palpation: abdomen soft; abdomen nontender Musculoskeletal: No acute arthritis in any joint Neurologic: Alert, awake and oriented x3. Generally very weak but no focal neuro deficit Results & Data Results & Data ([facility]) Vital Signs (Past 12 Hours) Vital Signs Temp Pulse Pulse Pulse Pulse Pulse Pulse 12/15/21 13:15 12/15/21 12:48 36.6 C 113 H 12/15/21 11:52 115 H 124 H 117 H 123 H 12/15/21 10:54 12/15/21 10:34 46 L 12/15/21 07:45 36.8 C 68 12/15/21 03:34 36.7 C Resp Resp Resp Resp Resp BP Pulse Ox 12/15/21 13:15 12/15/21 12:48 19 154/78 H 92 12/15/21 11:52 20 22 20 20 12/15/21 10:54 12/15/21 10:34 12/15/21 07:45 20 159/77 H 99 12/15/21 03:34 16 153/70 H 98 Pulse Ox Pulse Ox Pulse Ox Pulse Ox Pulse Ox Pulse Ox Pulse Ox 12/15/21 13:15 90 91 12/15/21 12:48 12/15/21 11:52 90 93 90 88 L 12/15/21 10:54 90 12/15/21 10:34 12/15/21 07:45 12/15/21 03:34 Pulse Ox 12/15/21 13:15 86 L 12/15/21 12:48 12/15/21 11:52 12/15/21 10:54 12/15/21 10:34 12/15/21 07:45 12/15/21 03:34 Laboratory Results Short CBC 12/15/21 Range/Units 05:48 WBC 9.76 (4.8-10.8) K/uL Hgb 12.5 (12.0-16.0) g/dL Hct 38.8 (37-47) % Plt Count 172 (130-400) K/uL BMP 12/15/21 05:48 Sodium 141 Potassium 4.1 Chloride 106 Carbon Dioxide 30 BUN 41 H Creatinine 0.67 Glucose 111 H Calcium 9.2 Liver Function 12/15/21 Range/Units 05:48 Total Bilirubin 0.2 (0.2-1.0) mg/dl AST 14 (13-39) U/L ALT 9 (7-52) U/L Alkaline Phosphatase 56 (34-104) U/L Albumin 3.0 L (3.4-5.0) gm/dl Medications Administered Current Inpatient Medications Acetaminophen (Acetaminophen 325 Mg Tab) 650 mg PO Q4H PRN PRN Reason: Pain or Fever Stop: 01/12/22 18:14 Hydrocodone Bitart/Acetaminophen (Hydrocodone/Acetamophen 5/325mg Tab) 1 tab PO Q8H PRN PRN Reason: Pain Stop: 12/27/21 18:14 Amlodipine Besylate (Amlodipine Besylate 5 Mg Tab) 10 mg PO DAILY MO Stop: 01/13/22 08:59 Last Admin: 12/15/21 08:58 Dose: 10 mg Documented by: Aspirin (Aspirin 81 Mg Ectab) 81 mg PO DAILY MO Stop: 01/13/22 08:59 Last Admin: 12/15/21 08:59 Dose: 81 mg Documented by: Diazepam (Diazepam 5 Mg Tablet) 5 mg PO BID PRN PRN Reason: Anxiety Stop: 01/12/22 18:14 Docusate Sodium (Docusate Sodium 100 Mg Cap) 100 mg PO BID MO Stop: 01/12/22 20:59 Last Admin: 12/15/21 09:14 Dose: Not Given Documented by: Doxycycline Hyclate (Doxycycline Hyclate 100 Mg Cap) 100 mg PO BID MO Stop: 12/20/21 20:59 Last Admin: 12/15/21 08:59 Dose: 100 mg Documented by: Enoxaparin Sodium (Enoxaparin Inj 30 Mg/0.3 Ml Syr) 30 mg SQ Q24H MO Stop: 01/12/22 18:14 Last Admin: 12/14/21 20:06 Dose: 30 mg Documented by: Fluticasone Furoate (Fluticasone Furoate 200mcg 14 Puffs/Inhaler) 1 puffs INH DAILY MO Stop: 01/13/22 08:59 Last Admin: 12/15/21 09:00 Dose: 1 puffs Documented by: Remdesivir 100 mg/ Sodium (Chloride) 250 mls @ 250 mls/hr IV Q24H MO Stop: 12/17/21 20:59 Last Infusion: 12/14/21 21:44 Dose: Infused Documented by: Dexamethasone 6 mg/ Syringe 1.5 mls @ 1 mls/min IV Q24H MO Stop: 01/13/22 08:59 Last Admin: 12/15/21 08:55 Dose: 1 mls/min Documented by: Ceftriaxone Sodium 1,000 mg/ (Dextrose) 50 mls @ 100 mls/hr IV Q24H [facility]; Protocol Stop: 12/19/21 09:29 Last Infusion: 12/15/21 10:10 Dose: Infused Documented by: Lisinopril (Lisinopril 20 Mg Tab) 20 mg PO DAILY [facility] Stop: 01/13/22 08:59 Last Admin: 12/15/21 08:59 Dose: 20 mg Documented by: Ondansetron HCl (Ondansetron Inj 2 Mg/Ml 2 Ml Vial) 4 mg IV Q6H PRN PRN Reason: Nausea Stop: 01/12/22 18:14 Polyethylene Glycol (Polyethylene (Miralax) 17 Gm Pack) 17 gm PO DAILY PRN PRN Reason: Constipation Stop: 01/12/22 18:14 Sennosides (Senna 8.6 Mg Tab) 8.6 mg PO BID [facility] Stop: 01/12/22 20:59 Last Admin: 12/15/21 08:58 Dose: 8.6 mg Documented by: (1) LLL pneumonia Pneumonia type: due to unspecified organism Qualified Code(s): J18.9 - Pneumonia, unspecified organism
[2021-12-15] MEDS ORDERED: METOPROLOL TARTRATE 25 MG TAB PO SCH (21:00)
[2021-12-15] MEDS: REMDESIVIR 100 MG in SODIUM CHLORIDE 0.9% 230 ML IV SCH (21:00)
[2021-12-15] MEDS: ENOXAPARIN INJ 30 MG/0.3 ML SYR SQ SCH (21:01)
[2021-12-16 06:24] LABS: Hematocrit (blood only) 41.4 % (37-47); Hemoglobin 13.3 g/dL (12.0-16.0); Immature Granulocytes # (auto) 0.02 K/uL (0.00-0.02); Immature Granulocytes % (auto) 0.2 %; Lymphocytes # (auto) 0.56 K/uL (1.2-3.4); Lymphocytes % (auto) 6.2 %; Mean Corpuscular Hemoglobin 30.9 pg (25-34); Mean Corpuscular Hgb Conc 32.1 g/dL (32-36); Mean Corpuscular Volume 96.1 fL (80-100); Mean Platelet Volume 11.3 fL (7.4-10.4); Monocytes # (auto) 0.68 K/uL (0.11-0.59); Monocytes % (auto) 7.5 %; Neutrophils # (auto) 7.76 K/uL (1.4-6.5); Neutrophils % (auto) 86.1 %; Platelet Count 208 K/uL (130-400); RDW Coefficient of Variation 13.5 % (11.5-14.5); RDW Standard Deviation 47.5 fL (36.4-46.3); Red Blood Count 4.31 M/uL (4.2-5.4); White Blood Count 9.02 K/uL (4.8-10.8)
[2021-12-16 06:59] LABS: BUN Creatinine Ratio 60.6 (10-20); Calcium 9.5 mg/dl (8.5-10.1); Est GFR (African American) 92.7 ml/min
[2021-12-16] MEDS: DOXYCYCLINE HYCLATE 100 MG CAP PO SCH (08:03)
[2021-12-16] MEDS: FLUTICASONE FUROATE 200MCG 14 PUFFS/INHALER INH SCH (08:04)
[2021-12-16] MEDS: amLODIPine BESYLATE 5 MG TAB PO SCH (08:04)
[2021-12-16] MEDS: SENNA 8.6 MG TAB PO SCH (08:04)
[2021-12-16] MEDS: ASPIRIN 81 MG ECTAB PO SCH (08:04)
[2021-12-16] MEDS: lisinopril 20 MG TAB PO SCH (08:04)
[2021-12-16] MEDS: cefTRIAXone SODIUM 1,000 MG in DEXTROSE 5% 50 ML IV SCH (08:05)
[2021-12-16] MEDS: dexAMETHasone 6 MG in SYRINGE 0 ML IV SCH (08:05)
[2021-12-16] MEDS: DOCUSATE SODIUM 100 MG CAP PO SCH (08:05)
--- NOTE | 2021-12-16 08:25 | Hospitalist Progress Note ---
Date of Service December 16, 2021 Assessment & Plan (1) Acute respiratory failure with hypoxia: Plan: This is an 86yo F with PMH of HTN, CKD III, DDD and other medical problems listed below who presents via EMS for sore throat x 1 week and was found to have acute hypoxia in setting of covid and [place] pna. Found by EMS to be hypoxic in the 70s, now 94% on 3L [place] Secondary to COVID-19 virus infection Covid PCR positive 12/13/20, symptomatic for 7 days, unvaccinated Cont dexamethasone and remdesivir. Questionable bacterial pneumonia and she has been on antibiotics since admission. Will continue with short course. Continue supplemental O2 She has been requiring 2 L of oxygen to maintain saturation She is eager to return home today Per PT eval she is safe to do so. She had a 2 step O2 saturation test and she will be requiring 2 L at rest and with ambulation on discharge (2) 2019 novel coronavirus-infected pneumonia (NCIP): Plan: plan as above. (3) LLL pneumonia: Plan: Afebrile with elevated leukocytosis, elevated procalcitonin early in admission. Cont with Rocephin and Doxycycline as above. Repeat CXR in 4-6 weeks. (4) HTN (hypertension): Plan: elevated, lisinopril dose was increased from 10mg daily to 20mg daily. Cont to trend. (5) CKD (chronic kidney disease), stage III: Plan: At baseline. Monitor with daily BMP. Short course remdesivir considered ok in CKD per lending consultant recommendations. (6) Anxiety: Plan: Valium PRN, typical use is once weekly. (7) Chronic back pain: Plan: No report of this today. Heat compress, home [place] as needed, uses 1-2x/week at home (8) DVT prophylaxis: Plan: Lovenox Full DC to home with small amount of supplemental oxygen likely today or tomorrow. Will discuss with son prior to discharge, who is involved in her care. Nedra Boss DO [facility] Hospitalist Admission and Anticipated Discharge Date Admission Date: December 13, 2021 Subjective 86 yo F admitted wtih covid pneumonia Hypoxia is improved She is 97% on 2LPM via [place]--removed oxygen and made RN aware Patient reports some cough but improved Denies SOB, fevers, chills, chest pain, abdominal pain Tolerating PO but doesn't eat much generally Very thin and frail. Lives in independent living at [facility] Review of Systems Review of Systems: All systems were reviewed and negative except as indicated above. Physical Exam Physical Exam: CONSTITUTIONAL: thin frail, elderly, vitals as above, generally well-appearing, NAD EYES: normal conjunctivae, no scleral icterus ENT: external ear and nose normal, MMM NECK: trachea midline RESPIRATORY: clear to auscultation bilaterally, diminished breath sounds throughout, no crackles, rales or wheezes, normal respiratory effort . No conversational dyspnea. CARDIOVASCULAR: regular rate and rhythm, S1 and 2 heard without murmurs, gallops or rubs, no JVD, no peripheral edema GASTROINTESTINAL: soft, nontender, ND, no guarding MUSCULOSKELETAL: generalized weakness without gross focal deficit. Head is normocephalic and atraumatic, neck supple, normal palpation of chest wall without tenderness SKIN: warm and dry NEUROLOGIC: CN 2-12 grossly intact, normal cognition, normal speech, no tremor PSYCHIATRIC: alert cooperative and oriented to person, place and time. Results & Data Results & Data ([facility]) Vital Signs (Past 12 Hours) Vital Signs Temp Pulse Pulse Resp BP Pulse Ox 12/16/21 07:18 36.8 C 72 18 167/73 H 91 12/16/21 07:16 63 12/16/21 04:29 36.7 C 73 14 162/96 H 98 12/15/21 23:17 36.7 C 75 16 168/87 H 97 Laboratory Results Short CBC 12/16/21 Range/Units 05:28 WBC 9.02 (4.8-10.8) K/uL Hgb 13.3 (12.0-16.0) g/dL Hct 41.4 (37-47) % Plt Count 208 (130-400) K/uL BMP 12/16/21 05:28 Sodium 143 Potassium Chloride 107 Carbon Dioxide 33 H BUN 40 H Creatinine 0.66 Glucose 115 H Calcium 9.5 Medications Administered Current Inpatient Medications Acetaminophen (Acetaminophen 325 Mg Tab) 650 mg PO Q4H PRN PRN Reason: Pain or Fever Stop: 01/12/22 18:14 Hydrocodone Bitart/Acetaminophen (Hydrocodone/Acetamophen 5/325mg Tab) 1 tab PO Q8H PRN PRN Reason: Pain Stop: 12/27/21 18:14 Amlodipine Besylate (Amlodipine Besylate 5 Mg Tab) 10 mg PO DAILY [facility] Stop: 01/13/22 08:59 Last Admin: 12/16/21 08:04 Dose: 10 mg Documented by: Aspirin (Aspirin 81 Mg Ectab) 81 mg PO DAILY MO Stop: 01/13/22 08:59 Last Admin: 12/16/21 08:04 Dose: 81 mg Documented by: Diazepam (Diazepam 5 Mg Tablet) 5 mg PO BID PRN PRN Reason: Anxiety Stop: 01/12/22 18:14 Docusate Sodium (Docusate Sodium 100 Mg Cap) 100 mg PO BID [facility] Stop: 01/12/22 20:59 Last Admin: 12/16/21 08:05 Dose: 100 mg Documented by: Doxycycline Hyclate (Doxycycline Hyclate 100 Mg Cap) 100 mg PO BID [facility] Stop: 12/20/21 20:59 Last Admin: 12/16/21 08:03 Dose: 100 mg Documented by: Enoxaparin Sodium (Enoxaparin Inj 30 Mg/0.3 Ml Syr) 30 mg SQ Q24H [facility] Stop: 01/12/22 18:14 Last Admin: 12/15/21 21:01 Dose: 30 mg Documented by: Fluticasone Furoate (Fluticasone Furoate 200mcg 14 Puffs/Inhaler) 1 puffs INH DAILY [facility] Stop: 01/13/22 08:59 Last Admin: 12/16/21 08:04 Dose: 1 puffs Documented by: Remdesivir 100 mg/ Sodium (Chloride) 250 mls @ 250 mls/hr IV Q24H [facility] Stop: 12/17/21 20:59 Last Infusion: 12/16/21 06:57 Dose: Infused Documented by: Dexamethasone 6 mg/ Syringe 1.5 mls @ 1 mls/min IV Q24H [facility] Stop: 01/13/22 08:59 Last Admin: 12/16/21 08:05 Dose: 1 mls/min Documented by: Ceftriaxone Sodium 1,000 mg/ (Dextrose) 50 mls @ 100 mls/hr IV Q24H [facility]; Protocol Stop: 12/19/21 09:29 Last Admin: 12/16/21 08:05 Dose: 100 mls/hr Documented by: Lisinopril (Lisinopril 20 Mg Tab) 20 mg PO DAILY [facility] Stop: 01/13/22 08:59 Last Admin: 12/16/21 08:04 Dose: 20 mg Documented by: Ondansetron HCl (Ondansetron Inj 2 Mg/Ml 2 Ml Vial) 4 mg IV Q6H PRN PRN Reason: Nausea Stop: 01/12/22 18:14 Polyethylene Glycol (Polyethylene (Miralax) 17 Gm Pack) 17 gm PO DAILY PRN PRN Reason: Constipation Stop: 01/12/22 18:14 Sennosides (Senna 8.6 Mg Tab) 8.6 mg PO BID [facility] Stop: 01/12/22 20:59 Last Admin: 12/16/21 08:04 Dose: 8.6 mg Documented by: (1) LLL pneumonia Pneumonia type: due to unspecified organism Qualified Code(s): J18.9 - Pneumonia, unspecified organism
--- NOTE | 2021-12-16 13:34 | Discharge Summary ---
Date of Service December 16, 2021 Admission HPI Per Admitting Provider This is an 86yo F with PMH of HTN, CKD III, DDD and other medical problems listed below who presents via EMS for sore throat x 1 week. Patient lives alone and has been feeling sick for past week with chills, sore throat, dry cough and myalgias. Also with intermittent SOB over the past few days. [place] more dizzy today and generally weak. Son came over and called EMS. Patient was found to be hypoxic in the 70s. Does not normally require oxygen. Remote smoking history. No fever, headache, chest pain, palpitations, wheezing, N/V, abdominal pain or dysuria. Endorses some constipation over past few days. Uses [place] a few times per week for back and hip pain. Has also been using colace and senna for constipation. Was not vaccinated for flu or covid. Admission Exam Per Admitting Provider On examination She is very lean and thin lady with mild to moderate shortness of breath at rest Her blood pressure noted to be high at 172/88 Chest-decreased breath sounds bilaterally with crackles in the left base Heart-S1-S2, regular Abdomen-benign Extremities-negative for any edema DEATH SURVEYS CODER-alert, awake and oriented x3 Principal Diagnosis acute respiratory failure with hypoxia 2/2 covid pneumonia LLL pneumonia Hypertension Discharge Exam CONSTITUTIONAL: thin frail, elderly, vitals as above, generally well-appearing, NAD EYES: normal conjunctivae, no scleral icterus ENT: external ear and nose normal, MMM NECK: trachea midline RESPIRATORY: clear to auscultation bilaterally, diminished breath sounds throughout, no crackles, rales or wheezes, normal respiratory effort . No conversational dyspnea. CARDIOVASCULAR: regular rate and rhythm, S1 and 2 heard without murmurs, gallops or rubs, no JVD, no peripheral edema GASTROINTESTINAL: soft, nontender, ND, no guarding MUSCULOSKELETAL: generalized weakness without gross focal deficit. Head is normocephalic and atraumatic, neck supple, normal palpation of chest wall without tenderness SKIN: warm and dry NEUROLOGIC: CN 2-12 grossly intact, normal cognition, normal speech, no tremor PSYCHIATRIC: alert cooperative and oriented to person, place and time. Discharge Data Allergies Allergy/AdvReac Type Severity Reaction Status Date / Time hydroxyzine [From Atarax] AdvReac HEART RACES Verified 12/13/21 15:45 Consultations 12/13/21 16:07 ED Decision to Admit Stat Hospital Course (1) Acute respiratory failure with hypoxia: This is an 86yo F with PMH of HTN, CKD III, DDD and other medical problems listed below who presents via EMS for sore throat x 1 week and was found to have acute hypoxia in setting of covid and LLL pna. Found by EMS to be hypoxic in the 70s, now 94% on 3L NC Secondary to COVID-19 virus infection Covid PCR positive 12/13/20, symptomatic for 7 days, unvaccinated Questionable bacterial pneumonia and she has been on antibiotics since admission. Elevated leukocytosis to 14K and elevated procalcitonin on admission. She was continued on a short course of Rocephin and doxycycline. Treated with course of remdesivir and steroids. Supplemental oxygen was needed throughout her stay. She was eager to return home on day of discharge. Per PT eval she is safe to do so. She had a 2 step O2 saturation test and she will be requiring 2 L at rest and with ambulation on discharge Repeat CXR in 4-6 weeks. Blood pressure was increased during her stay prompting higher dose of her home lisinopril to be given at discharge. Close followup with primary care for repeat BP check recommended. (2) 2019 novel coronavirus-infected pneumonia (NCIP): (3) LLL pneumonia: (4) HTN (hypertension): (5) CKD (chronic kidney disease), stage III: (6) Anxiety: (7) Chronic back pain: Total Time Total Time Spent Total Time Spent (In Minutes): 60 Discharge Plan Discharge Items Patient Disposition: Home - Self-Care Reason For Visit: COVID PNA, HYPOXIA Discharge Diagnosis: acute respiratory failure with hypoxia 2/2 covid pneumonia LLL pneumonia Hypertension Condition on Discharge: Good Activity: Resume your previous activity Non-emergency contact: Primary Care Provider Call non-emergency contact if: you have any medication questions and your symptoms worsen Follow-up/Referrals: Brandie Macario MD [Primary Care Provider] - (Date & Time 12/24/2021 12:00 PM Provider Brandie Omalley MD Department Family Medicine [facility] ) Diet: Regular Addtl Attending Provider Instructions: Please take all medications as instructed on discharge list below. Your blood pressure was found to be elevated while you were hospitalized. As a result, your lisinopril was increased. Please followup with your primary care physician (PCP) within 2 weeks of hospital discharge to ensure this is rechecked. Blood work will also be needed at this time to monitor your electrolytes and kidney function. A repeat chest xray in 4 weeks is recommended to ensure complete resolution of pneumonia in the left lower lung. You were given supplemental oxygen to use on discharge from the hospital. Please work with your PCP to come off of this once your lung infection is completely resolved. Your goal oxygen saturation should remain >90%. Please stay on home isolation for at least 10 days since your symptom onset of covid. After this please continue to utilize a mask while in public and comply with all social distancing and masking guidelines per the [place] Dept of Health. It was a pleasure taking care of you! Please call if you have any questions or problems. You can reach a [facility] hospitalist on duty at [facility] 24 hours a day by calling [phone]. Take care of yourself. Nedra Boss, DO [facility] Hospitalist Pending Studies at Discharge: No Stand-Alone Forms: My [facility] Medications and DC Order Prescriptions: New doxycycline hyclate 100 mg Capsule 100 mg PO BID Qty: 8 RF: 0 lisinopril 40 mg tablet 40 mg PO DAILY Qty: 30 RF: 0 amoxicillin 500 mg tablet 500 mg PO Q12H Qty: 8 RF: 0 (DME) Oxygen Home Liters Per Minute See Rx Instructions .Route Qty: 1 RF: 0 Continued sennosides [senna] 8.6 mg Tablet 8.6 mg PO BID RF: 0 hydrocodone-acetaminophen 5-325 mg Tablet 1 tab PO Q8H PRN (Reason: Pain) RF: 0 amlodipine 10 mg Tablet 10 mg PO DAILY RF: 0 docusate sodium 100 mg Capsule 100 mg PO BID RF: 0 aspirin 81 mg Tablet,Chewable 81 mg PO DAILY RF: 0 Flovent HFA 110 mcg/actuation Hfa Aerosol Inhaler 2 puff INHALATION BID RF: 0 diazepam 5 mg Tablet 5 mg PO BID PRN (Reason: Anxiety) RF: 0 diclofenac sodium 1 % Gel 0 g TOPICAL TID PRN (Reason: Pain) RF: 0 Discontinued lisinopril 5 mg Tablet 10 mg PO DAILY RF: 0 Discharge Orders: Discharge Order (Routine); Ordered 12/16/21 Ordered By: Nedra Boss Admission Data Admit Date/Time: 12/13/21 16:12 Attending Provider: Nedra Boss Admit Provider: Bryan Holguin Primary Care Provider: Brandie Macario Other Providers: Bryan Holguin ; Bal Wade [facility] Other Interventions: Discharge Summary Assessment (RN) Last Done: 12/16/21 13:43
== END 2021-12-16 15:47 | disposition home health service (06) | DRG 177 ==
LOC: ED 14:33 → SUATTDRO 16:12 → EDINP 16:12 → 2E 19:46

== ENCOUNTER 2023-01-06 13:08 | Inpatient (IN) ==
--- NOTE | 2023-01-06 14:56 | Emergency Department Note ---
Impression & Plan Periprosthetic hip fracture, Acute pain of left hip, Fall ED Provider Note INFORMANT: Patient ED PROVIDER(S): Jay Ohara MD CHIEF COMPLAINT: Hip pain PLAN: Disposition: Admitted Condition: Good Outpatient prescription management: none Referral: None MEDICAL DECISION MAKING: Patient present because of an accidental fall and had hip pain. X-ray imaging was performed and was concerning for periprosthetic fracture. Radiology recommended CT imaging. CT imaging was done and this confirmed the fracture. The patient was reassessed and informed. She still declined analgesia. Hip fracture protocol orders were put in place. Lab testing was unremarkable. The patient had a consultation placed with Dr. Rosales of [facility] orthopedics. He will see the patient in consultation. Consultation was made with Dr. Mejia of the [facility] service. Patient was evaluated in the ER for further management. After review of the information above and other included data, I feel the patient requires further management in the hospital as she cannot bear weight. Triage Nursing notes reviewed and agree them. Vital Signs: reviewed and remarkable for no significant abnormalities Prior /Outside records reviewed: none Differential diagnosis: Fracture, subluxation, dislocation, contusion, ligamentous injury, neurovascular, compartment syndrome, rhabdomyolysis, as well as other pathologies. Diagnostics, as interpreted by me: ECG: Twelve-lead ECG reveals normal sinus rhythm at 69 bpm. There is ant eroseptal Q waves present. No ST elevation Cardiac Monitoring: Cardiac monitoring ordered by me: The patient was placed on continuous cardiac monitoring and observed. It revealed a normal sinus rhythm at 77 beats per minute without ectopy or evidence of dysrhythmia. Medical decision rules: none Imaging studies: X-ray and CT scan as above. Periprosthetic left hip fracture. I refer you to the EMR for further details. HPI: The patient is a 87year old female who presents to the Emergency Room with complaints of left hip pain. This started this morning at 8 AM and is from a fall. The patient also notes the following associated symptoms, none. Patient states she cannot bear weight on the left leg due to pain. She was bending over to feed her pets and lost her balance. She denies any other injury. The patient has been given no medication for relieving factors. Current pain is rated as 5/10. Patient currently declined analgesia. Pt denies LOC, headache, visual changes, neck pain, chest pain, breathing difficulties, nausea, vomiting, abdominal pain, back pain, other extremity pain, numbness, weakness, open wounds, active bleeding, or other complaints. PAST MEDICAL HISTORY: See Below, degenerative disc disease, COPD, hypertension PAST SURGICAL HISTORY: See Below, left hip replacement SOCIAL HISTORY: See Below, former smoker HOME MEDICATIONS: See Below ALLERGIES: See Below VITALS: See Below PHYSICAL EXAMINATION: GENERAL: Awake, alert, uncomfortable-appearing, in no distress HENT: Normocephalic, atraumatic. Oropharynx unremarkable. EYES: Normal conjunctiva. Sclera non-icteric. NECK: Inspection normal. Non-tender. Supple. No nuchal rigidity. FROM. No m asses. RESPIRATORY: Clear to auscultation. No wheezes. No rales. Normal respiratory effort. CARDIAC: Normal rate. Normal rhythm. No murmurs. No rubs. Extremities warm and well perfused. Pulses equal. No JVD. GI: Soft, non-distended. No tenderness to palpation. No rebound or guarding. No masses. RECTAL: Deferred. MUSCULOSKELETAL: Both upper and the right lower extremities are atraumatic. Examination of the left lower extremity reveals its mildly shortened compared to the right. There is no significant rotation present. There is limited range of motion at the left hip joint secondary to pain. There is associated tenderness around the left hip joint as well. No open wounds. Remainder of the left lower extremity is atraumatic and nontender. Left lower extremity is NVI. Chest examination reveals no tenderness. The back is symmetrical on inspection without obvious abnormality. There is no CVA tenderness to palpation. No joint edema. LOWER EXTREMITIES: Calves are equal size bilaterally and non-tender. No edema. No discoloration. NEURO: Normal sensorium. No sensory or motor deficits noted. SKIN: No rash or jaundice noted. 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 CKD (chronic kidney disease) stage 3, GFR 30-59 ml/min COPD (chronic obstructive pulmonary disease) DDD (degenerative disc disease) History of tobacco abuse stopped in 1985 Hypertension LLL pneumonia Osteoporosis Respiratory failure Tremor Surgical History History of hip replacement History of tonsillectomy Family History Other Heart disease Hypertension Social History Smoking Status: Former smoker packs per day: 0.5; Smoking End Date: 1974; Second Hand Exposure: No; Do You Dip or Chew Tobacco: No; Tobacco Cessation Education Requested by Patient: No Hx Alcohol Use: No Hx Substance Use: No Preferred Language: Singaporean Communication Ability: Effective Visual Impairment: No Limitations Hearing Ability: Normal Research Technician Required: No Beliefs That Will Affect Care: None marital status: Current Living Situation: Alone and Personal Care Facility [facility] Situation [facility] current occupational status: retired How many Children do You have: 1 Other Information That Helps Us Care for You: No Feels Safe at Home: Yes Safety Concerns: Feels Safe At This Time Diet Comment: regular caffeine: Yes during the past year weight has: remained stable Dental Care, Regularly: Yes Physical Activity Frequency: Other Physical Activity Frequency Comment: limited by physical condition Seatbelt Use: always Sunscreen Use: Yes Assistive Devices: Cane and Walker Assistive Devices Comment: Does not wear oxygen at home Allergies Allergies Allergy/AdvReac Type Severity Reaction Status Date / Time hydroxyzine [From Atarax] AdvReac Intermediate HEART RACES Verified 01/06/23 16:38 Home Meds Home Medications Medication Instructions Recorded Confirmed aspirin 81 mg chewable tablet 81 mg PO DAILY 12/13/21 01/06/23 diazepam 5 mg tablet 5 mg PO BID PRN Anxiety 12/13/21 01/06/23 diclofenac sodium 1 % topical gel 0 g topical TID PRN Pain 12/13/21 01/06/23 albuterol sulfate 90 mcg/actuation 90 mcg inhalation Q6H PRN 10/28/22 01/06/23 breath activated powder Shortness Of Breath Or Wheezing inhaler,sensor amlodipine 10 mg tablet 10 mg PO QAM 10/28/22 01/06/23 docusate sodium 100 mg capsule 100 mg PO BID PRN Constipation 10/28/22 01/06/23 sennosides 8.6 mg tablet (senna) 8.6 mg PO BID PRN Constipation 10/28/22 01/06/23 Results & Data (ED) Vital Signs Vital Signs - 24 hr 01/06/23 15:46 01/06/23 15:47 01/06/23 16:08 Pulse Rate 78 Pulse Rate [Apical] 92 H Respiratory Rate 20 Respiratory Effort / Characteristics Non-Labored Spontaneous Respiratory Depth Normal Respiratory Pattern Blood Pressure [Left Arm] 176/86 H Blood Pressure Mean [Left Arm] 116 Pulse Oximetry 87 L 94 Oxygen Delivery Method Room Air Nasal Cannula Oxygen Flow Rate 2 01/06/23 16:57 Pulse Rate Pulse Rate [Apical] 78 Respiratory Rate 20 Respiratory Effort / Characteristics Non-Labored Spontaneous Respiratory Depth Normal Respiratory Pattern Regular Blood Pressure [Left Arm] 167/79 H Blood Pressure Mean [Left Arm] 108 Pulse Oximetry 98 Oxygen Delivery Method Oxygen Flow Rate Laboratory Data 01/07/23 07:04 01/06/23 16:40 Lab Results 01/06/23 01/06/23 01/06/23 Range/Units 16:30 16:40 16:40 WBC 10.50 (4.8-10.8) K/ul RBC 4.35 (4.20-5.40) M/uL Hgb 14.4 (12.0-16.0) g/dl Hct 41.3 (37.0-47.0) % MCV 94.9 (80.0-100.0) fL MCH 33.1 (25.0-34.0) pg MCHC 34.9 (32.0-36.0) g/dL RDW Std Deviation 41.3 (36.4-46.3) fL RDW Coeff of Krista 11.9 (11.5-14.5) % Plt Count 198 (130-400) K/uL MPV 10.5 (9.4-12.4) fL Immature Gran % (Auto) 0.3 % Neut % (Auto) 78.4 % Lymph % (Auto) 12.0 % Humphreys % (Auto) 8.3 % Eos % (Auto) 0.4 % Baso % (Auto) 0.6 % Neut # (Auto) 8.24 H (1.40-6.50) K/uL Lymph # (Auto) 1.26 (1.2-3.4) K/uL Humphreys # (Auto) 0.87 H (0.11-0.59) K/uL Eos # (Auto) 0.04 (0-0.50) K/uL Baso # (Auto) 0.06 (0-0.2) K/uL Immature Gran # (Auto) 0.03 (0.01-0.20) K/uL PT 10.9 (9.0-12.0) Seconds INR 1.0 (0.9-1.1) APTT 27.9 (21.0-31.0) Seconds PTT Ratio 1.0 Sodium (136-145) mmol/L Potassium (3.5-5.1) mmol/L Chloride (98-107) mmol/L Carbon Dioxide (21-32) mmol/L Anion Gap (3-11) BUN (6-23) mg/dl Creatinine (0.6-1.2) mg/dl Est Cr Clr Drug Dosing ml/min Est GFR ( Amer) ml/min Est GFR (Non-Af Amer) ml/min BUN/Creatinine Ratio (10-20) Glucose (70-99(Fasting)) mg/dl Calcium (8.5-10.1) mg/dl Total Bilirubin (0.2-1.0) mg/dl AST (13-39) U/L ALT (7-52) U/L Alkaline Phosphatase (34-104) U/L Total Protein (6.0-8.3) gm/dl Albumin (3.4-5.0) gm/dl Globulin (2.5-4.0) gm/dl Albumin/Globulin Ratio (0.9-2) SARS-CoV-2, RNA, NAAT NEGATIVE (NEGATIVE) 01/06/23 Range/Units 16:40 WBC (4.8-10.8) K/ul RBC (4.20-5.40) M/uL Hgb (12.0-16.0) g/dl Hct (37.0-47.0) % MCV (80.0-100.0) fL MCH (25.0-34.0) pg MCHC (32.0-36.0) g/dL RDW Std Deviation (36.4-46.3) fL RDW Coeff of Krista (11.5-14.5) % Plt Count (130-400) K/uL MPV (9.4-12.4) fL Immature Gran % (Auto) % Neut % (Auto) % Lymph % (Auto) % Humphreys % (Auto) % Eos % (Auto) % Baso % (Auto) % Neut # (Auto) (1.40-6.50) K/uL Lymph # (Auto) (1.2-3.4) K/uL Humphreys # (Auto) (0.11-0.59) K/uL Eos # (Auto) (0-0.50) K/uL Baso # (Auto) (0-0.2) K/uL Immature Gran # (Auto) (0.01-0.20) K/uL PT (9.0-12.0) Seconds INR (0.9-1.1) APTT (21.0-31.0) Seconds PTT Ratio Sodium 140 (136-145) mmol/L Potassium 4.0 (3.5-5.1) mmol/L Chloride 103 (98-107) mmol/L Carbon Dioxide 31 (21-32) mmol/L Anion Gap 6 (3-11) BUN 22 (6-23) mg/dl Creatinine 0.80 (0.6-1.2) mg/dl Est Cr Clr Drug Dosing 27.4 ml/min Est GFR ( Amer) 76.8 ml/min Est GFR (Non-Af Amer) 66.3 ml/min BUN/Creatinine Ratio 27.5 H (10-20) Glucose 98 (70-99(Fasting)) mg/dl Calcium 10.0 (8.5-10.1) mg/dl Total Bilirubin 0.9 (0.2-1.0) mg/dl AST 18 (13-39) U/L ALT 12 (7-52) U/L Alkaline Phosphatase 80 (34-104) U/L Total Protein 6.7 (6.0-8.3) gm/dl Albumin 4.4 (3.4-5.0) gm/dl Globulin 2.3 L (2.5-4.0) gm/dl Albumin/Globulin Ratio 1.9 (0.9-2) SARS-CoV-2, RNA, NAAT (NEGATIVE) Administered Medications Acetaminophen (Acetaminophen 325 Mg Tab) 650 mg PO Q8H MO Stop: 02/05/23 20:28 Last Admin: 01/07/23 11:43 Dose: 650 mg Documented By: Admin: 01/07/23 03:38 Dose: Not Given Documented By: Admin: 01/06/23 21:36 Dose: Not Given Documented By: GINA Amlodipine Besylate (Amlodipine Besylate 5 Mg Tab) 10 mg PO QAM MO Stop: 02/06/23 08:59 Last Admin: 01/07/23 07:28 Dose: 10 mg Documented By: GLORIA Aspirin (Aspirin 81 Mg Chew) 81 mg PO DAILY MO Stop: 02/06/23 08:59 Last Admin: 01/07/23 07:28 Dose: 81 mg Documented By: GLORIA Diazepam (Diazepam 5 Mg Tablet) 5 mg PO BID PRN PRN Reason: Anxiety Stop: 02/05/23 20:28 Last Admin: 01/06/23 21:41 Dose: 5 mg Documented By: GINA Fluticasone/Vilanterol (Fluticasone/Vilanterol 100/25mcg 14 Puffs/Inhaler) 1 puffs INH DAILY [facility]; Protocol Stop: 02/06/23 08:59 Last Admin: 01/07/23 07:28 Dose: 1 puffs Documented By: GLORIA Heparin Sodium (Porcine) (Heparin Sod 5,000 Unit/0.5 Ml Vial) 5,000 units SQ Q12 MO Stop: 02/05/23 20:59 Last Admin: 01/07/23 07:29 Dose: 5,000 units Documented By: Admin: 01/06/23 21:37 Dose: Not Given Documented By: GINA Tramadol HCl (Tramadol Hcl 50 Mg Tablet) 25 mg PO Q4H PRN PRN Reason: moderate to severe pain Stop: 02/05/23 20:28 Last Admin: 01/07/23 07:32 Dose: 25 mg Documented By: GLORIA Discontinued Medications Hydromorphone HCl (Hydromorphone Inj 0.5 Mg/0.5 Ml Syr) 0.25 mg IV Q20M PRN PRN Reason: Moderate Pain (Rating 3,4,5,6) Stop: 01/20/23 16:12 Last Admin: 01/06/23 16:44 Dose: 0.25 mg Documented By: JUDAH Sodium Chloride (Nss 1000ml) 1,000 mls @ 75 mls/hr IV .[id number] [facility] Stop: 01/07/23 05:34 Last Infusion: 01/06/23 20:30 Dose: 0 mls/hr Documented By: Admin: 01/06/23 16:46 Dose: 75 mls/hr Documented By: NDW Discharge Plan Visit Data Chief Complaint: Fall Stated Complaint: fall, hip pain ED Provider: Jay Ohara Discharge Problem: Periprosthetic hip fracture, Acute pain of left hip, Fall Patient Disposition: Admitted As Inpatient Discharge Instructions Interventions: ED Discharge Assessment Last Done: 01/06/23 20:06
--- NOTE | 2023-01-06 14:59 | XRay Report ---
SINGLE VIEW PELVIS; 2 VIEWS LEFT HIP CLINICAL HISTORY: Fall. Left hip pain. FINDINGS: AP view of the pelvis with AP and frog-leg views of the left hip are obtained. No prior andree dies are available for comparison at the time of dictation. The skeletal structures are osteopenic. A left hip arthroplasty is in near anatomic alignment. There is a lucency in the greater trochanter of the left proximal femur cortex that is highly suspicious for acute nondisplaced periprosthetic fract ure. No additional findings are suspicious for acute fracture. Mild to moderate arthritic change and joint space narrowing is seen in the right hip. Degenerative sclerosis is noted in the sacroiliac michael nts. Advanced lumbosacral spondylosis and scoliosis is partially imaged. The overlying soft tissues a re within normal limits. Phleboliths are seen in the pelvis. IMPRESSION: 1. Findings are highly suspicious for an acute periprosthetic fracture through the greater trochanter of the left proximal femur. CT would be confirmatory. 2. No additional fracture is identified. 3. The left hip arthroplasty is in near anatomic alignment. Electronically signed by: Junior Weeks M.D. 01/06/2023 2:58 PM
--- NOTE | 2023-01-06 16:05 | CT Scan Report ---
LEFT HIP CT WITHOUT CONTRAST CLINICAL HISTORY: left hip pain, plain film concerning for fx COMPARISON STUDY: Pelvis and left hip radiographs performed earlier today. TECHNIQUE: Axial images of the left hip were obtained without IV contrast. Sagittal and coronal recon structions were viewed. Automated exposure control was utilized for the study. A dose lowering techn ique was utilized adhering to the principles of ALARA. FINDINGS: Incidental note is made of sigmoid diverticulosis, partially imaged on this exam. Alignment of the hip arthroplasty is anatomic. Note is made of an acute nondisplaced periprosthetic fracture e xtending through the greater trochanter of the left femur. No definitive extension through the medial cortex is identified although evaluation is difficult given streak artifact from the hardware. No ac cliff fractures identified within visualized portions of the left hemipelvis. No suspicious osseous les ions are noted. IMPRESSION: Acute nondisplaced periprosthetic fracture extending through the greater trochanter of th e left femur. ACT 112: Negative or not required by law. Electronically signed by: Quinn Herrera M.D. 01/06/2023 4:03 PM
[2023-01-06] MEDS ORDERED: HYDROmorphone INJ 0.5 MG/0.5 ML SYR IV PRN (16:13)
[2023-01-06] MEDS ORDERED: SODIUM CHLORIDE 0.9% 1000ML 1,000 ML IV SCH (16:15)
--- NOTE | 2023-01-06 16:50 | XRay Report ---
XR chest 1V portable HISTORY: 87 years-old Female fall acute chest trauma status post fall COMPARISON: December 13, 2021 TECHNIQUE: AP view of the chest FINDINGS: Cardiomediastinal and hilar silhouettes are within normal limits. No pneumothorax, pleural effusion, airspace consolidation or overt pulmonary edema. There is improved aeration of the lungs compared to the prior study. Hyperinflation. Degenerative changes of the shoulders and spine. Sigmoidal thoracolu mbar scoliosis. IMPRESSION: 1. No acute posttraumatic abnormality of the chest identified. 2. There is improved aeration of the left lung compared to the prior study suggestive of a resolved p neumonia. ACT 112: Negative or not required by law. The above report was generated using voice recognition software. It may contain grammatical, syntax o r spelling errors. Electronically signed by: Yosvany Bull M.D. 01/06/2023 4:49 PM
[2023-01-06 17:06] LABS: Basophils # (auto) 0.06 K/uL (0-0.2); Basophils % (auto) 0.6 %; Eosinophils # (auto) 0.04 K/uL (0-0.50); Eosinophils % (auto) 0.4 %; Hematocrit (blood only) 41.3 % (37.0-47.0); Hemoglobin 14.4 g/dl (12.0-16.0); Immature Granulocytes # (auto) 0.03 K/uL (0.01-0.20); Immature Granulocytes % (auto) 0.3 %; Lymphocytes # (auto) 1.26 K/uL (1.2-3.4); Mean Corpuscular Hemoglobin 33.1 pg (25.0-34.0); Mean Corpuscular Hgb Conc 34.9 g/dL (32.0-36.0); Mean Corpuscular Volume 94.9 fL (80.0-100.0); Mean Platelet Volume 10.5 fL (9.4-12.4); Monocytes # (auto) 0.87 K/uL (0.11-0.59); Monocytes % (auto) 8.3 %; Neutrophils # (auto) 8.24 K/uL (1.40-6.50); Neutrophils % (auto) 78.4 %; Platelet Count 198 K/uL (130-400); RDW Coefficient of Variation 11.9 % (11.5-14.5); RDW Standard Deviation 41.3 fL (36.4-46.3); Red Blood Count 4.35 M/uL (4.20-5.40)
--- NOTE | 2023-01-06 17:27 | History & Physical Report ---
Date of Service January 06, 2023 Assessment & Plan (1) Periprosthetic hip fracture: Plan: Patient with a history of a left hip fracture repair many years ago, now with a left periprosthetic hip fracture following a fall from standing height, likely representing a pathologic fracture due to osteoporosis. Orthopedic surgery Dr. Tommy Rosales consulted and appreciate recommendations, suspect nonoperative at this point however we will continue to monitor while admitted. Physical and Occupational Therapy orders are placed, and case management involvement requested following those evaluations to determine if patient needs skilled facility for rehab following discharge. Walker with all ambulation. Fall precautions. Tylenol 650 mg every 8 hours scheduled, with tramadol 25 mg p.o. every 4 hours as needed for severe or breakthrough pain, or before PT. Can adjust pain medications as necessary based on patient's comfort. CBC in the morning to follow hemoglobin given fracture. (2) Closed left hip fracture: Plan: See #1. (3) Hypoxia: Plan: While in the ER patient noted to have desaturation to 87% on room air, improved with 2 L nasal cannula. ER chest x-ray without any evidence of traumatic abnormality of the chest, pneumonia, pleural effusion, overt pulmonary edema. During this episode of hypoxia patient did not have shortness of breath, notes that she uses "her puffer" albuterol whenever she has trouble breathing at home. Patient may need chronic oxygen therapy, will continue to monitor while admitted. Goal SPO2 88-92% given likely has COPD. (4) COPD (chronic obstructive pulmonary disease): Plan: Patient with a suspected history of COPD give given her previous history of smoking, however has not had PFTs in the past. She has been previously ordered Advair, however per primary care notes she does not take. We discussed daily inhalers given hypoxia as above and likely that she has COPD, and patient is amenable at this time to try. Can also continue albuterol rescue inhaler as needed. (5) Anxiety: Plan: Patient on chronic diazepam 5 mg p.o. twice daily as needed, continue this. Plan Heparin for DVT prophylaxis, regular diet. Patient is a full code, admit to med/surg History of Present Illness Chief Complaint: Left hip periprosthetic fracture Primary Care Provider: NORMAN Ulrich 87-year-old female past medical history significant for CKD stage III, anxiety on chronic benzodiazepine therapy, hypertension, suspected COPD presented to the ER following a fall from standing height onto her left side, with sudden left hip pain. She reports that she was feeding her cat and she bent over and fell without loss of consciousness onto her left side. She denies lightheadedness or presyncopal sensations before the fall. No chest pain, shortness of breath. No abdominal pain. No recent fevers. She notes a history of being on oxygen about a year ago after having had pneumonia and being hospitalized, other than that has not been on oxygen as does not have chronic oxygen at home. She uses as needed inhalers for intermittent shortness of breath. In ER had XR and CT left hip which showed periprosthetic hip fracture. Plan per Ortho is non-operative at this time. Patient endorses pain with motion of the left leg, otherwise no complaints. Also noted to have hypoxia to 87% on RA briefly in ER resolved with 2LNC; patient reports no SOB at time of hypoxia. CXR without evidence of pneumonia or fluids overload. Allergies Allergy/AdvReac Type Severity Reaction Status Date / Time hydroxyzine [From Atarax] AdvReac Intermediate HEART RACES Verified 01/06/23 16:38 Home Medications Medication Instructions Recorded Confirmed Type aspirin 81 mg chewable tablet 81 mg PO DAILY 12/13/21 01/06/23 History diazepam 5 mg tablet 5 mg PO BID PRN Anxiety 12/13/21 01/06/23 History diclofenac sodium 1 % topical gel 0 g topical TID PRN Pain 12/13/21 01/06/23 History albuterol sulfate 90 mcg/actuation 90 mcg inhalation Q6H PRN 10/28/22 01/06/23 History breath activated powder Shortness Of Breath Or Wheezing inhaler,sensor amlodipine 10 mg tablet 10 mg PO QAM 10/28/22 01/06/23 History docusate sodium 100 mg capsule 100 mg PO BID PRN Constipation 10/28/22 01/06/23 History sennosides 8.6 mg tablet (senna) 8.6 mg PO BID PRN Constipation 10/28/22 01/06/23 History 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 CKD (chronic kidney disease) stage 3, GFR 30-59 ml/min COPD (chronic obstructive pulmonary disease) DDD (degenerative disc disease) History of tobacco abuse stopped in 1985 Hypertension LLL pneumonia Osteoporosis Respiratory failure Tremor Surgical History History of hip replacement History of tonsillectomy Family History Other Heart disease Hypertension Social History Smoking Status: Former smoker packs per day: 0.5; Hx Alcohol Use: No Hx Substance Use: No Preferred Language: Namibian Communication Ability: Effective Visual Impairment: No Limitations Hearing Ability: Normal Front Office Clerk Required: No Beliefs That Will Affect Care: None marital status: Current Living Situation: Alone current occupational status: retired How many Children do You have: 1 Feels Safe at Home: Yes Diet Comment: regular caffeine: Yes during the past year weight has: remained stable Dental Care, Regularly: Yes Physical Activity Frequency: Other Physical Activity Frequency Comment: limited by physical condition Seatbelt Use: always Sunscreen Use: Yes Assistive Devices: Walker Review of Systems Review of Systems: All systems reviewed & are unremarkable except as noted in HPI & below Physical Exam Constitutional: WD/WN, vitals as above Respiratory: normal respiratory effort, lungs clear to auscultation Cardiovascular: RRR, no murmur, no edema DP and PT pulses palpable in bilateral lower extremities Gastrointestinal (Abdomen): normal bowel sounds, soft, nontender, no hepatosplenomegaly Musculoskeletal: Left dorsal foot ecchymotic and tender to palpation, difficult to appreciate specific localizable site. Bruising does not extend past the ankle or to the bottom of the foot. Skin: no rashes, warm and dry Neurologic: Sensation intact in bilateral lower extremities Patient is able to wiggle toes on both feet Psychiatric: A+Ox3, euthymic affect Results & Data Results & Data ([facility]) Vital Signs (Past 12 Hours) Vital Signs Temp Pulse Pulse Resp BP BP Pulse Ox 01/06/23 16:57 78 20 167/79 H 98 01/06/23 16:08 78 01/06/23 15:47 94 01/06/23 15:46 92 H 20 176/86 H 87 L 01/06/23 12:56 36.5 C 102 H 16 156/82 H 96 01/06/23 12:56 36.5 C 102 H 18 156/82 H 93 O2 Del Method O2 Flow Rate 01/06/23 16:57 01/06/23 16:08 01/06/23 15:47 Nasal Cannula 2 01/06/23 15:46 Room Air 01/06/23 12:56 01/06/23 12:56 Room Air PG Care Time/CCT Total # of Minutes Spent Total Time Spent with Patient: Total time spent is greater than 50% in coordination of care (as documented) at patient's floor/unit and/or counseling patient: Coding Level of Care Code 73390 INT INP/OBS CARE MIN Diagnoses Periprosthetic hip fracture M97.8XXA; Z96.649 Closed left hip fracture S72.002A Hypoxia R09.02 COPD (chronic obstructive pulmonary disease) J44.9 Anxiety F41.9
[2023-01-06 17:50] LABS: Albumin Globulin Ratio 1.9 (0.9-2); Albumin Level 4.4 gm/dl (3.4-5.0); BUN Creatinine Ratio 27.5 (10-20); Bilirubin,Total 0.9 mg/dl (0.2-1.0); Creatinine Clr Calc Pharmacy 27.4 ml/min; Est GFR (African American) 76.8 ml/min; Est GFR (Non-African American) 66.3 ml/min; Globulin 2.3 gm/dl (2.5-4.0); Total Protein 6.7 gm/dl (6.0-8.3)
[2023-01-06 17:53] LABS: Partial Thromboplastin Time 27.9 Seconds (21.0-31.0); Prothrombin Time 10.9 Seconds (9.0-12.0)
--- NOTE | 2023-01-06 19:26 | XRay Report ---
XR foot LT min 3V routine HISTORY: 87 years-old Female left foot acute left foot pain COMPARISON: None TECHNIQUE: 3 views of the left foot FINDINGS: Demineralized appearance of the bones. Small bunion formation with soft tissue calcifications medial to the first metatarsal head. Mild to moderate osteoarthritis. No acute fracture, dislocation, osseou s erosion or opaque foreign body identified. IMPRESSION: No acute fracture or dislocation. ACT 112: Negative or not required by law. The above report was generated using voice recognition software. It may contain grammatical, syntax o r spelling errors. Electronically signed by: Yosvany Bull M.D. 01/06/2023 7:25 PM
[2023-01-06 19:49] LABS: Appearance Urine Clear (Clear); Bacteria Urine Automated Negative (Negative); Bilirubin Urine Negative (Negative); Blood Urine Negative (Negative); Color Urine Yellow; Glucose Urine UA Negative (Negative); Ketones Urine Trace (Negative); Leukocyte Esterase Urine Negative (Negative); Nitrite Urine Negative (Negative); Protein Urine 1+ (Negative); RBC Urine Automated 0-4 /hpf (0-4); Specific Gravity Urine 1.014 (1.000-1.030); Urobilinogen Urine Negative (Negative)
[2023-01-06] MEDS ORDERED: diazePAM 5 MG TABLET PO PRN (20:29)
[2023-01-06] MEDS ORDERED: SENNA 8.6 MG TAB PO PRN (20:29)
[2023-01-06] MEDS ORDERED: DOCUSATE SODIUM 100 MG CAP PO PRN (20:29)
[2023-01-06] MEDS ORDERED: ALBUTEROL HFA 8 GM INHALER INH PRN (20:44)
[2023-01-06] MEDS: ACETAMINOPHEN 325 MG TAB PO SCH (21:36)
[2023-01-06] MEDS: HEPARIN SOD 5,000 UNIT/0.5 ML VIAL SQ SCH (21:37)
[2023-01-07] MEDS: ACETAMINOPHEN 325 MG TAB PO SCH ×3 (03:38→20:23)
[2023-01-07] MEDS: FLUTICASONE/VILANTEROL 100/25MCG 14 PUFFS/INHALER INH SCH (07:28)
[2023-01-07] MEDS: amLODIPine BESYLATE 5 MG TAB PO SCH (07:28)
[2023-01-07] MEDS: ASPIRIN 81 MG CHEW PO SCH (07:28)
[2023-01-07] MEDS: HEPARIN SOD 5,000 UNIT/0.5 ML VIAL SQ SCH ×2 (07:29→20:23)
[2023-01-07] MEDS: traMADol HCL 50 MG TABLET PO PRN ×2 (07:32→16:06)
[2023-01-07 08:28] LABS: Basophils # (auto) 0.08 K/uL (0-0.2); Eosinophils # (auto) 0.17 K/uL (0-0.50); Eosinophils % (auto) 2.2 %; Hematocrit (blood only) 36.8 % (37.0-47.0); Hemoglobin 12.3 g/dl (12.0-16.0); Immature Granulocytes # (auto) 0.01 K/uL (0.01-0.20); Immature Granulocytes % (auto) 0.1 %; Lymphocytes # (auto) 1.11 K/uL (1.2-3.4); Lymphocytes % (auto) 14.3 %; Mean Corpuscular Hgb Conc 33.4 g/dL (32.0-36.0); Mean Corpuscular Volume 95.8 fL (80.0-100.0); Mean Platelet Volume 10.2 fL (9.4-12.4); Monocytes # (auto) 0.73 K/uL (0.11-0.59); Monocytes % (auto) 9.4 %; Neutrophils # (auto) 5.64 K/uL (1.40-6.50); Platelet Count 178 K/uL (130-400); RDW Coefficient of Variation 11.9 % (11.5-14.5); RDW Standard Deviation 41.4 fL (36.4-46.3); Red Blood Count 3.84 M/uL (4.20-5.40); White Blood Count 7.74 K/ul (4.8-10.8)
--- NOTE | 2023-01-07 09:01 | Hospitalist Progress Note ---
Date of Service January 07, 2023 Assessment & Plan (1) Periprosthetic hip fracture: Plan: Patient with a history of a left hip fracture repair many years ago, now with a left periprosthetic hip fracture following a fall from standing height, likely representing a pathologic fracture due to osteoporosis. Orthopedic surgery Dr. Tommy Rosales consulted and appreciate recommendations, nonoperative at this point however we will continue to monitor while admitted. Physical and Occupational Therapy orders are placed, and case management involvemed as patient likely needs rehab on d/c. Walker with all ambulation. Fall precautions. Tylenol 650 mg every 8 hours scheduled, with tramadol 25 mg p.o. every 4 hours as needed for severe or breakthrough pain, or before PT. Can adjust pain medications as necessary based on patient's comfort. CBC in the morning to follow hemoglobin given fracture. (2) Closed left hip fracture: Plan: See #1. (3) Hypoxia: Plan: While in the ER patient noted to have desaturation to 87% on room air, improved with 2 L nasal cannula. ER chest x-ray without any evidence of traumatic abnormality of the chest, pneumonia, pleural effusion, overt pulmonary edema. During this episode of hypoxia patient did not have shortness of breath, notes that she uses "her puffer" albuterol whenever she has trouble breathing at home. Patient may need chronic oxygen therapy on discharge, will continue to monitor while admitted and perform two step prior to discharge. Goal SPO2 >92%. (4) COPD (chronic obstructive pulmonary disease): Plan: Patient with a suspected history of COPD given her previous history of smoking, however has not had PFTs in the past. She has been previously ordered Advair, however per primary care notes she does not take. We discussed daily inhalers given hypoxia as above and likely that she has COPD, and patient is amenable at this time to try. Advair BID ordered. Can also continue albuterol rescue inhaler as needed. (5) Anxiety: Plan: Patient on chronic diazepam 5 mg p.o. twice daily as needed, continue this. Plan Heparin for DVT prophylaxis, regular diet. Patient is a full code, continue med/surg Dispo pending PT and OT ongoing evaluations, referral placed to [facility], continue pain control Admission and Anticipated Discharge Date Admission Date: January 06, 2023 Subjective Today patient still with left hip pain with movement, but no pain if lying in bed. No shortness of breath, is on 1-2LNC. No fevers, chest pain, abd pain. Review of Systems Review of Systems: All systems reviewed & are unremarkable except as noted in Subjective Physical Exam Constitutional: WD/WN, vitals as above Respiratory: normal respiratory effort, lungs clear to auscultation Cardiovascular: RRR, no murmur, no edema DP and PT pulses palpable in bilateral lower extremities Gastrointestinal (Abdomen): normal bowel sounds, soft, nontender, no hepatosplenomegaly Musculoskeletal: Left dorsal foot ecchymotic but improved from yesterdays exam Skin: no rashes, warm and dry Neurologic: Sensation intact in bilateral lower extremities Patient is able to wiggle toes on both feet Psychiatric: A+Ox3, euthymic affect Results & Data Results & Data ([facility]) Vital Signs (Past 12 Hours) Vital Signs Temp Pulse Resp BP Pulse Ox O2 Del Method O2 Flow Rate 01/07/23 08:00 Nasal Cannula 1 01/07/23 06:56 36.7 C 77 18 138/72 94 Nasal Cannula 2.5 PG Care Time/CCT Total # of Minutes Spent Total Time Spent with Patient: Total time spent is greater than 50% in coordination of care (as documented) at patient's floor/unit and/or counseling patient: Coding Level of Care Code 38770 SUB INP/OBS CARE 2/35MIN Diagnoses Periprosthetic hip fracture M97.8XXA; Z96.649 Closed left hip fracture S72.002A Hypoxia R09.02 COPD (chronic obstructive pulmonary disease) J44.9 Anxiety F41.9
--- NOTE | 2023-01-07 11:44 | Orthopedic Consultation ---
Date of Service January 07, 2023 Assessment & Plan (1) Closed left hip fracture: Patient has a periprosthetic left greater trochanter fracture which is nondisplaced. This does not require surgical management. She can weight-bear as tolerated. She should avoid active hip abduction for the next 6 weeks. She can begin with physical therapy and weight-bear as tolerated. She is okay for discharge or transfer anytime medically stable. Derm she can follow back up in my clinic in 4 to 6 weeks. Any orthopedic questions can be directly [phone] History of Present Illness Reason for Consultation: . Left hip pain status post fall with periprosthetic fracture Requesting Physician: . Attending Physician: Rosa Madrigal DO . Patient is an 87-year-old female with multiple medical comorbidities who sustained a fall yesterday. She was apparently tried to feed her cat lost her balance and fell and injured her left hip. She has a history of a left hip arthroplasty done for fracture that she says 10 years ago [place]. She says is never been quite right. She comes in now with increasing lateral hip pain. She has been admitted by the hospitalist service. She is normally a resident [facility]. No other complaints. Denies any head injury. Allergies Allergy/AdvReac Type Severity Reaction Status Date / Time hydroxyzine [From Atarax] AdvReac Intermediate HEART RACES Verified 01/06/23 16:38 Home Medications Medication Instructions Recorded Confirmed Type aspirin 81 mg chewable tablet 81 mg PO DAILY 12/13/21 01/06/23 History diazepam 5 mg tablet 5 mg PO BID PRN Anxiety 12/13/21 01/06/23 History diclofenac sodium 1 % topical gel 0 g topical TID PRN Pain 12/13/21 01/06/23 History albuterol sulfate 90 mcg/actuation 90 mcg inhalation Q6H PRN 10/28/22 01/06/23 History breath activated powder Shortness Of Breath Or Wheezing inhaler,sensor amlodipine 10 mg tablet 10 mg PO QAM 10/28/22 01/06/23 History docusate sodium 100 mg capsule 100 mg PO BID PRN Constipation 10/28/22 01/06/23 History sennosides 8.6 mg tablet (senna) 8.6 mg PO BID PRN Constipation 10/28/22 01/06/23 History 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 CKD (chronic kidney disease) stage 3, GFR 30-59 ml/min COPD (chronic obstructive pulmonary disease) DDD (degenerative disc disease) History of tobacco abuse stopped in 1985 Hypertension LLL pneumonia Osteoporosis Respiratory failure Tremor Surgical History History of hip replacement History of tonsillectomy Family History Other Heart disease Hypertension Social History Smoking Status: Former smoker packs per day: 0.5; Smoking End Date: 1974; Second Hand Exposure: No; Do You Dip or Chew Tobacco: No; Tobacco Cessation Education Requested by Patient: No Hx Alcohol Use: No Hx Substance Use: No Preferred Language: Lebanese Communication Ability: Effective Visual Impairment: No Limitations Hearing Ability: Normal Ux Design Lead Required: No Beliefs That Will Affect Care: None marital status: Current Living Situation: Alone and Personal Care Facility Current Living Situation Comment: [facility] current occupational status: retired How many Children do You have: 1 Other Information That Helps Us Care for You: No Feels Safe at Home: Yes Safety Concerns: Feels Safe At This Time Diet Comment: regular caffeine: Yes during the past year weight has: remained stable Dental Care, Regularly: Yes Physical Activity Frequency: Other Physical Activity Frequency Comment: limited by physical condition Seatbelt Use: always Sunscreen Use: Yes Assistive Devices: None Assistive Devices Comment: Does not wear oxygen at home Review of Systems All systems reviewed & are unremarkable except as noted in HPI & below. Physical Exam . Physical examination reveals a fairly thin cachectic elderly female patient lying in bed. She is awake alert and oriented. She looks comfortable. Examination left hip reveals no visible deformity. She describes her pain right over the lateral aspect of her hip. She can do a straight leg raise without too much pain. Mild pain with hip motion. She is neurologically intact. No knee effusion. Results & Data Results & Data Laboratory Results . Diagnostic Findings . X-rays of the left hip reveal the evidence of a bipolar hip arthroplasty. There is a small crack in the greater trochanter which is nondisplaced. CT scan shows a hip arthroplasty for fracture in place. Once again there is a nondisplaced greater trochanter fracture. This does not extend all the way down the femur. The rest of the implant looks a fixed PG Care Time/CCT Total # of Minutes Spent Total Time Spent with Patient: Total time spent is greater than 50% in coordination of care (as documented) at patient's floor/unit and/or counseling patient: Coding Level of Care Code INP/OBS CONSULT LVL 3, 45 MIN Diagnoses Closed left hip fracture S72.002A
--- NOTE | 2023-01-07 22:10 | Electrocardiogram Report ---
Test Reason : Blood Pressure : / mmHG Vent. Rate : 069 BPM Atrial Rate : 069 BPM P-R Int : 186 ms QRS Dur : 084 ms QT Int : 414 ms P-R-T Axes : 079 086 088 degrees QTc Int : 443 ms Normal sinus rhythm Anteroseptal infarct (cited on or before 06-JAN-2023) Abnormal ECG When compared with ECG of 13-DEC-2021 15:16, No significant change was found Confirmed by Ari Chowdhury ([id number]) on 01/07/2023 10:10:04 PM Referred By: REFERRED SELF Confirmed By:Kishor Chowdhury
[2023-01-08] MEDS: DICLOFENAC SOD 1% GEL 100 GM TUBE EXT SCH ×4 (00:13→18:04)
[2023-01-08] MEDS: ACETAMINOPHEN 325 MG TAB PO SCH ×3 (05:15→20:27)
[2023-01-08 07:06] LABS: Hematocrit (blood only) 34.4 % (37.0-47.0); Hemoglobin 11.6 g/dl (12.0-16.0); Mean Corpuscular Hgb Conc 33.7 g/dL (32.0-36.0); Mean Corpuscular Volume 94.8 fL (80.0-100.0); Mean Platelet Volume 10.3 fL (9.4-12.4); Platelet Count 159 K/uL (130-400); RDW Coefficient of Variation 11.6 % (11.5-14.5); RDW Standard Deviation 40.3 fL (36.4-46.3); Red Blood Count 3.63 M/uL (4.20-5.40); White Blood Count 7.07 K/ul (4.8-10.8)
[2023-01-08 07:23] LABS: BUN Creatinine Ratio 36.2 (10-20); Calcium 9.2 mg/dl (8.5-10.1); Creatinine Clr Calc Pharmacy 31.2 ml/min; Est GFR (African American) 90.7 ml/min; Est GFR (Non-African American) 78.3 ml/min
[2023-01-08] MEDS: ASPIRIN 81 MG CHEW PO SCH (08:15)
[2023-01-08] MEDS: amLODIPine BESYLATE 5 MG TAB PO SCH (08:15)
[2023-01-08] MEDS: HEPARIN SOD 5,000 UNIT/0.5 ML VIAL SQ SCH ×2 (08:16→20:26)
[2023-01-08] MEDS: FLUTICASONE/VILANTEROL 100/25MCG 14 PUFFS/INHALER INH SCH (08:16)
--- NOTE | 2023-01-08 12:49 | Hospitalist Progress Note ---
Date of Service January 08, 2023 Assessment & Plan (1) Periprosthetic hip fracture: Plan: Patient with a history of a left hip fracture repair many years ago, now with a left periprosthetic hip fracture following a fall from standing height, likely representing a pathologic fracture due to osteoporosis. Orthopedic surgery Dr. Tommy Rosales consulted and appreciate recommendations, nonoperative at this point however we will continue to monitor while admitted. Physical and Occupational Therapy orders are placed, recommending rehab on discharge, CM following. Walker with all ambulation. Fall precautions. Tylenol 650 mg every 8 hours scheduled, Voltaren gel q6h scheduled, with tramadol 25 mg p.o. every 4 hours as needed for severe or breakthrough pain, or before PT. Can adjust pain medications as necessary based on patient's comfort. Hgb stable. (2) Closed left hip fracture: Plan: See #1. (3) Hypoxia: Plan: While in the ER patient noted to have desaturation to 87% on room air, improved with 2 L nasal cannula. ER chest x-ray without any evidence of traumatic abnormality of the chest, pneumonia, pleural effusion, overt pulmonary edema. During this episode of hypoxia patient did not have shortness of breath, notes that she uses "her puffer" albuterol whenever she has trouble breathing at home. Patient may need chronic oxygen therapy on discharge, will continue to monitor while admitted and if needed will continue on discharge at SNF. (4) COPD (chronic obstructive pulmonary disease): Plan: Patient with a suspected history of COPD given her previous history of smoking (20 pack years), however has not had PFTs in the past. She has been previously ordered Advair, however per primary care notes she does not take. We discussed daily inhalers on admission given hypoxia as above and possible that she has COPD/emphysema, and patient is amenable at this time to try. Advair BID ordered. Can also continue albuterol rescue inhaler as needed. (5) Anxiety: Plan: Patient on chronic diazepam 5 mg p.o. twice daily as needed, continue this. Plan Heparin for DVT prophylaxis, regular diet. Patient is a full code, continue me d/surg Dispo pending PT and OT ongoing evaluations, referral placed to [facility], continue pain control Admission and Anticipated Discharge Date Admission Date: January 06, 2023 Subjective No overnight events. Patient reports pain with movement, reports that PT was difficult yesterday due to pain and difficulty with bearing weight on left leg. No complaints of trouble breathing. Still wearing 1LNC at time of my interview. No reports of abdominal pain. Reports last BM a few days ago. Review of Systems Review of Systems: All systems reviewed & are unremarkable except as noted in Subjective Physical Exam Constitutional: WD/WN, vitals as above Respiratory: normal respiratory effort, lungs clear to auscultation Cardiovascular: RRR, no murmur, no edema DP and PT pulses palpable in bilateral lower extremities Gastrointestinal (Abdomen): normal bowel sounds, soft, nontender, no hepatosplenomegaly Musculoskeletal: Left dorsal foot with improving ecchymosis Skin: no rashes, warm and dry Neurologic: Sensation and motor strength intact Psychiatric: A+Ox3, euthymic affect Results & Data Results & Data ([facility]) Vital Signs (Past 12 Hours) Vital Signs Temp Pulse Resp BP Pulse Ox O2 Del Method O2 Flow Rate 01/08/23 09:54 Nasal Cannula 1 01/08/23 08:00 36.4 C L 60 17 148/65 H 97 Nasal Cannula 3 PG Care Time/CCT Total # of Minutes Spent Total Time Spent with Patient: Total time spent is greater than 50% in coordination of care (as documented) at patient's floor/unit and/or counseling patient: Coding Level of Care Code 09901 SUB INP/OBS CARE 2/35MIN Diagnoses Periprosthetic hip fracture M97.8XXA; Z96.649 Closed left hip fracture S72.002A Hypoxia R09.02 COPD (chronic obstructive pulmonary disease) J44.9 Anxiety F41.9
[2023-01-08] MEDS: traMADol HCL 50 MG TABLET PO PRN (13:23)
[2023-01-08] MEDS: DOCUSATE SODIUM 100 MG CAP PO SCH (20:26)
[2023-01-09] MEDS: DICLOFENAC SOD 1% GEL 100 GM TUBE EXT SCH ×5 (00:02→23:08)
[2023-01-09] MEDS: ACETAMINOPHEN 325 MG TAB PO SCH ×3 (05:32→20:11)
[2023-01-09 06:43] LABS: Hematocrit (blood only) 33.6 % (37.0-47.0); Hemoglobin 11.5 g/dl (12.0-16.0); Mean Corpuscular Hemoglobin 32.3 pg (25.0-34.0); Mean Corpuscular Hgb Conc 34.2 g/dL (32.0-36.0); Mean Corpuscular Volume 94.4 fL (80.0-100.0); Mean Platelet Volume 10.7 fL (9.4-12.4); Platelet Count 163 K/uL (130-400); RDW Coefficient of Variation 11.6 % (11.5-14.5); RDW Standard Deviation 40.1 fL (36.4-46.3); Red Blood Count 3.56 M/uL (4.20-5.40)
[2023-01-09] MEDS: ASPIRIN 81 MG CHEW PO SCH (07:30)
[2023-01-09] MEDS: amLODIPine BESYLATE 5 MG TAB PO SCH (07:30)
[2023-01-09] MEDS: DOCUSATE SODIUM 100 MG CAP PO SCH ×2 (07:30→20:11)
[2023-01-09] MEDS: FLUTICASONE/VILANTEROL 100/25MCG 14 PUFFS/INHALER INH SCH (07:31)
[2023-01-09] MEDS: HEPARIN SOD 5,000 UNIT/0.5 ML VIAL SQ SCH ×2 (07:31→20:09)
--- NOTE | 2023-01-09 07:42 | Hospitalist Progress Note ---
Date of Service January 09, 2023 Assessment & Plan (1) Periprosthetic hip fracture: Plan: Patient with a history of a left hip fracture repair many years ago, now with a left periprosthetic hip fracture following a fall from standing height, likely representing a pathologic fracture due to osteoporosis. Orthopedic surgery Dr. Tommy Rosales consulted and appreciate recommendations, nonoperative at this point however we will continue to monitor while admitted. Physical and Occupational Therapy orders are placed, recommending rehab on discharge, CM following and referral placed. Walker with all ambulation. Fall precautions. Tylenol 650 mg every 8 hours scheduled, Voltaren gel q6h scheduled, with tramadol 25 mg p.o. every 4 hours as needed for severe or breakthrough pain, or before PT. Can adjust pain medications as necessary based on patient's comfort, but patient is comfortable with current regimen. Hgb stable at 11.5. (2) Closed left hip fracture: Plan: See #1. (3) Hypoxia: Plan: While in the ER patient noted to have desaturation to 87% on room air, improved with 2 L nasal cannula, now saturating to 98% on room air. ER chest x-ray without any evidence of traumatic abnormality of the chest, pneumonia, pleural effusion, overt pulmonary edema. During this episode of hypoxia patient did not have shortness of breath, notes that she uses "her puffer" albuterol whenever she has trouble breathing at home. Patient may need chronic oxygen therapy on discharge, will continue to monitor while admitted and if needed will continue on discharge at SNF. (4) COPD (chronic obstructive pulmonary disease): Plan: Patient with a suspected history of COPD given her previous history of smoking (20 pack years), however has not had PFTs in the past. She has been previously ordered Advair, however per primary care notes she does not take. We discussed daily inhalers on admission given hypoxia as above and possible that she has an element of COPD/emphysema, and patient is amenable at this time to try. Continue formulary equivalent Breo Ellipta BID. Can also continue albuterol rescue inhaler as needed for SOB/wheezing. (5) Anxiety: Plan: Patient on chronic diazepam 5 mg p.o. twice daily as needed, continue this. (6) Constipation: Plan: Discussed adequate water intake today, as last BM was several days ago. Docusate 100mg BID, Senna BID. Fleet enema if still with constipation. Plan Heparin for DVT prophylaxis, regular diet. Patient is a full code, continue med/surg Dispo pending PT and OT ongoing evaluations, referral placed to [facility], continue pain control Admission and Anticipated Discharge Date Admission Date: January 06, 2023 Subjective No acute events overnight. Sarai denies abdominal pain, admits to constipati on, no chest pain or SOB. Review of Systems Review of Systems: All systems reviewed & are unremarkable except as noted in Subjective Physical Exam Constitutional: WD/WN, vitals as above Respiratory: normal respiratory effort, lungs clear to auscultation Cardiovascular: RRR, no murmur, no edema Gastrointestinal (Abdomen): normal bowel sounds, soft, nontender, no hepatosplenomegaly Musculoskeletal: Left dorsal foot with resolving ecchymosis Skin: no rashes, warm and dry Neurologic: Sensation and motor strength intact Psychiatric: A+Ox3, euthymic affect Results & Data Results & Data ([facility]) Vital Signs (Past 12 Hours) Vital Signs Temp Pulse Resp BP Pulse Ox O2 Del Method O2 Flow Rate 01/09/23 07:22 36.6 C 67 16 152/67 H 97 Nasal Cannula 1.5 01/08/23 20:30 Nasal Cannula 1.5 PG Care Time/CCT Total # of Minutes Spent Total Time Spent with Patient: Total time spent is greater than 50% in coordination of care (as documented) at patient's floor/unit and/or counseling patient: Coding Level of Care Code 62308 SUB INP/OBS CARE 2/35MIN Medical Decision Making Moderate Complexity Diagnoses Periprosthetic hip fracture M97.8XXA; Z96.649 Closed left hip fracture S72.002A Hypoxia R09.02 COPD (chronic obstructive pulmonary disease) J44.9 Anxiety F41.9 Constipation K59.00
[2023-01-09] MEDS ORDERED: SOD PHOSPHATE/SOD BIPHOSPHATE ENEMA 132 ML BTL PR PRN (10:09)
[2023-01-09] MEDS: traMADol HCL 50 MG TABLET PO PRN (10:42)
[2023-01-09] MEDS: SENNA 8.6 MG TAB PO SCH (20:10)
[2023-01-10] MEDS: DICLOFENAC SOD 1% GEL 100 GM TUBE EXT SCH ×4 (05:38→23:14)
[2023-01-10] MEDS: ACETAMINOPHEN 325 MG TAB PO SCH ×3 (05:38→21:17)
[2023-01-10] MEDS: FLUTICASONE/VILANTEROL 100/25MCG 14 PUFFS/INHALER INH SCH (09:06)
[2023-01-10] MEDS: SENNA 8.6 MG TAB PO SCH ×2 (09:07→21:16)
[2023-01-10] MEDS: DOCUSATE SODIUM 100 MG CAP PO SCH ×2 (09:07→21:17)
[2023-01-10] MEDS: HEPARIN SOD 5,000 UNIT/0.5 ML VIAL SQ SCH ×2 (09:07→21:20)
[2023-01-10] MEDS: amLODIPine BESYLATE 5 MG TAB PO SCH (09:07)
[2023-01-10] MEDS: ASPIRIN 81 MG CHEW PO SCH (09:07)
[2023-01-10] MEDS: traMADol HCL 50 MG TABLET PO PRN (21:16)
[2023-01-11] MEDS ORDERED: MELATONIN 3 MG TAB PO PRN (00:14)
[2023-01-11] MEDS: DICLOFENAC SOD 1% GEL 100 GM TUBE EXT SCH (05:13)
[2023-01-11] MEDS: ACETAMINOPHEN 325 MG TAB PO SCH (05:13)
[2023-01-11] MEDS: traMADol HCL 50 MG TABLET PO PRN (07:56)
[2023-01-11] MEDS: amLODIPine BESYLATE 5 MG TAB PO SCH (09:58)
[2023-01-11] MEDS: DOCUSATE SODIUM 100 MG CAP PO SCH (09:59)
[2023-01-11] MEDS: SENNA 8.6 MG TAB PO SCH (09:59)
[2023-01-11] MEDS: ASPIRIN 81 MG CHEW PO SCH (10:00)
[2023-01-11] MEDS: FLUTICASONE/VILANTEROL 100/25MCG 14 PUFFS/INHALER INH SCH (10:03)
[2023-01-11] MEDS: HEPARIN SOD 5,000 UNIT/0.5 ML VIAL SQ SCH (10:06)
--- NOTE | 2023-01-11 12:37 | Discharge Summary ---
Date of Service January 11, 2023 Admission HPI Per Admitting Provider 87-year-old female past medical history significant for CKD stage III, anxiety on chronic benzodiazepine therapy, hypertension, suspected COPD presented to the ER following a fall from standing height onto her left side, with sudden left hip pain. She reports that she was feeding her cat and she bent over and fell without loss of consciousness onto her left side. She denies lightheadedness or presyncopal sensations before the fall. No chest pain, shortness of breath. No abdominal pain. No recent fevers. She notes a history of being on oxygen about a year ago after having had pneumonia and being hospitalized, other than that has not been on oxygen as does not have chronic oxygen at home. She uses as needed inhalers for intermittent shortness of breath. In ER had XR and CT left hip which showed periprosthetic hip fracture. Plan per Ortho is non-operative at this time. Patient endorses pain with motion of the left leg, otherwise no complaints. Also noted to have hypoxia to 87% on RA briefly in ER resolved with 2LNC; patient reports no SOB at time of hypoxia. CXR without evidence of pneumonia or fluids overload. Principal Diagnosis Left periprosthetic hip fracture, mechanical fall Discharge Exam General-alert and oriented x3, no fevers, no chills HEENT-head atraumatic and normocephalic, pupils equal and reactive to light, extraocular muscles intact Neck-no lymphadenopathy or thyromegaly, trachea midline Chest-clear to auscultation percussion. No rales wheezing or rhonchi Cardiac-regular rate and rhythm, normal S1 and S2 Abdomen-normal bowel sounds, nontender, no hepatosplenomegaly Extremities-Limited range of motion left hip from periprosthetic fracture Neuro-cranial nerves II through XII intact, motor and sensory function within normal limits, strength symmetrical , no focal deficits Psych-normal affect, normal mood Discharge Data Allergies Allergy/AdvReac Type Severity Reaction Status Date / Time hydroxyzine [From Atarax] AdvReac Intermediate HEART RACES Verified 01/06/23 16:38 Consultations 01/06/23 16:51 ED Decision to Admit Stat 01/06/23 17:33 Consult Orthopedic Surgery Routine Ordered Studies 01/06/23 15:15 CT hip LT wo con Stat Hospital Course (1) Periprosthetic hip fracture: Patient with a history of a left hip fracture repair many years ago, now with a left periprosthetic hip fracture following a fall from standing height, likely representing a pathologic fracture due to osteoporosis. Orthopedic surgery Dr. Tommy Rosales consulted and appreciate recommendations, nonoperative at this point however we will continue to monitor while admitted. Physical and Occupational Therapy orders are placed, recommending rehab on discharge, CM following and referral placed. Walker with all ambulation. Fall precautions. Tylenol 650 mg every 8 hours scheduled, Voltaren gel q6h scheduled, with tramadol 25 mg p.o. every 4 hours as needed for severe or breakthrough pain, or before PT. Can adjust pain medications as necessary based on patient's comfort, but patient is comfortable with current regimen. Hgb stable (2) Closed left hip fracture: Nonoperative. Supportive care. Pain management (3) Hypoxia: Transient. Resolved . Chest x-ray unremarkable. (4) COPD (chronic obstructive pulmonary disease): Suspected diagnosis based on prolonged smoking history in the past. Currently stable. Continue formulary equivalent Breo Ellipta BID. (5) Anxiety: Takes chronic diazepam 5 mg p.o. twice daily as needed (6) Constipation: Docusate 100mg BID, Senna BID. Fleet enema prn. Plan [facility] today, January 11 Total Time Total Time Spent Total Time Spent (In Minutes): 35 minutes Discharge Plan Discharge Items Patient Disposition: Transfer Group Home Fac Reason For Visit: PERIPROSTHETIC HIP FX, HYPOXIA Discharge Diagnosis: Periprosthetic left hip fracture, nonoperative. Transient hypoxemia Activity: Resume your previous activity Non-emergency contact: Primary Care Provider Call non-emergency contact if: you have any medication questions Follow-up/Referrals: Faraz Chamorro CRNP [Nurse Practitioner] - Diet: Heart Healthy Addtl Attending Provider Instructions: Follow-up with orthopedic surgery in 3 weeks Pending Studies at Discharge: No Stand-Alone Forms: My [facility] Skilled Items Patient informed of condition?: Yes DNR: Yes Discharge Level of Care: Skilled Communicable Disease: No Discharge Prognosis: Stable Lines: None Urinary Catheter: No Medications and DC Order Prescriptions: New tramadol 50 mg Tablet 25 mg PO Q4H PRNQty: 0 0RF fluticasone furoate-vilanterol [Breo Ellipta] 100-25 mcg/dose Blister With Device 1 puff inhalation DAILY Qty: 0 0RF Continued albuterol sulfate 90 mcg/actuation aero powdr breath act w/sensor 90 mcg inhalation Q6H PRN (Reason: Shortness Of Breath Or Wheezing) diazepam 5 mg Tablet 5 mg PO BID PRN (Reason: Anxiety) diclofenac sodium 1 % Gel 0 g TOPICAL TID PRN (Reason: Pain) Rx Instructions: APPLY TO BACK & HIPS amlodipine 10 mg tablet 10 mg PO QAM docusate sodium 100 mg capsule 100 mg PO BID PRN (Reason: Constipation) sennosides [senna] 8.6 mg tablet 8.6 mg PO BID PRN (Reason: Constipation) Changed aspirin 81 mg Tablet,Chewable 81 mg PO BID Qty: 60 0RF Discharge Orders: Discharge Order (Routine); Ordered 01/11/23 Ordered By: Joshua Stone Admission Data Admit Date/Time: 01/06/23 17:33 Attending Provider: Joshua Stone Admit Provider: Rosa Madrigal Primary Care Provider: Joshua Stone Other Providers: James Rosales ; Rosa Madrigal ; Claudia Miguel Coding Level of Care Code HOSP INP/OBS DISCH >30 MIN Diagnoses Periprosthetic hip fracture M97.8XXA; Z96.649 Closed left hip fracture S72.002A Hypoxia R09.02 COPD (chronic obstructive pulmonary disease) J44.9 Anxiety F41.9 Constipation K59.00
--- NOTE | 2023-01-11 13:49 | Discharge Summary ---
Date of Service January 11, 2023 Admission HPI Per Admitting Provider 87-year-old female past medical history significant for CKD stage III, anxiety on chronic benzodiazepine therapy, hypertension, suspected COPD presented to the ER following a fall from standing height onto her left side, with sudden left hip pain. She reports that she was feeding her cat and she bent over and fell without loss of consciousness onto her left side. She denies lightheadedness or presyncopal sensations before the fall. No chest pain, shortness of breath. No abdominal pain. No recent fevers. She notes a history of being on oxygen about a year ago after having had pneumonia and being hospitalized, other than that has not been on oxygen as does not have chronic oxygen at home. She uses as needed inhalers for intermittent shortness of breath. In ER had XR and CT left hip which showed periprosthetic hip fracture. Plan per Ortho is non-operative at this time. Patient endorses pain with motion of the left leg, otherwise no complaints. Also noted to have hypoxia to 87% on RA briefly in ER resolved with 2LNC; patient reports no SOB at time of hypoxia. CXR without evidence of pneumonia or fluids overload. Principal Diagnosis periprosthetic hip fracture Discharge Data Allergies Allergy/AdvReac Type Severity Reaction Status Date / Time hydroxyzine [From Atarax] AdvReac Intermediate HEART RACES Verified 01/06/23 16:38 Consultations 01/06/23 16:51 ED Decision to Admit Stat 01/06/23 17:33 Consult Orthopedic Surgery Routine Ordered Studies 01/06/23 15:15 CT hip LT wo con Stat Total Time Total Time Spent Total Time Spent (In Minutes): 40 minutes Discharge Plan Discharge Items Patient Disposition: Transfer [facility] Fac Reason For Visit: PERIPROSTHETIC HIP FX, HYPOXIA Discharge Diagnosis: Periprosthetic left hip fracture, nonoperative. Transient hypoxemia Activity: Resume your previous activity Non-emergency contact: Primary Care Provider Call non-emergency contact if: you have any medication questions Follow-up/Referrals: Faraz Chamorro CRNP [Nurse Practitioner] - Diet: Heart Healthy Addtl Attending Provider Instructions: Follow-up with orthopedic surgery in 3 weeks Pending Studies at Discharge: No Stand-Alone Forms: [facility] Skilled Items Patient informed of condition?: Yes DNR: Yes Discharge Level of Care: Skilled Communicable Disease: No Discharge Prognosis: Stable Lines: None Urinary Catheter: No Medications and DC Order Prescriptions: New tramadol 50 mg Tablet 25 mg PO Q4H PRNQty: 0 0RF fluticasone furoate-vilanterol [Breo Ellipta] 100-25 mcg/dose Blister With Device 1 puff inhalation DAILY Qty: 0 0RF tramadol 50 mg tablet 25 mg PO Q6H PRN (Reason: pain) Qty: 30 0RF Continued albuterol sulfate 90 mcg/actuation aero powdr breath act w/sensor 90 mcg inhalation Q6H PRN (Reason: Shortness Of Breath Or Wheezing) diazepam 5 mg Tablet 5 mg PO BID PRN (Reason: Anxiety) diclofenac sodium 1 % Gel 0 g TOPICAL TID PRN (Reason: Pain) Rx Instructions: APPLY TO BACK & HIPS amlodipine 10 mg tablet 10 mg PO QAM docusate sodium 100 mg capsule 100 mg PO BID PRN (Reason: Constipation) sennosides [senna] 8.6 mg tablet 8.6 mg PO BID PRN (Reason: Constipation) Changed aspirin 81 mg Tablet,Chewable 81 mg PO BID Qty: 60 0RF Discharge Orders: Discharge Order (Routine); Ordered 01/11/23 Ordered By: Joshua Benz/Other Patient Handouts: Understanding Hip Fractures Admission Data Admit Date/Time: 01/06/23 17:33 Attending Provider: Joshua Stone Admit Provider: Rosa Madrigal Primary Care Provider: Joshua Stone Other Providers: James Rosales ; Rosa Madrigal ; Claudia Miguel Other Interventions: Discharge Summary Assessment (RN) Last Done: 01/11/23 12:54 Coding Level of Care Code HOSP INP/OBS DISCH >30 MIN Diagnoses
== END 2023-01-11 13:22 | DRG 560 ==
LOC: ED 13:08 → SUPCPDRO 17:33 → 3W 17:33 → SUATTDRO 17:33 → 3W 20:06